=== PATIENT | male | born 1955 | race Caucasian/White ===

== ENCOUNTER → 2017-11-07 | Outpatient (CLI) | payer BC | END | disposition home or self-care (01) | LOC: CPPFTMAIN 13:20 | PROVIDERS: ATTEND Family Medicine | DX: J44.9 Chronic obstructive pulmonary disease, unspecified (principal); R94.2 Abnormal results of pulmonary function studies | CPT/HCPCS: 94060; 94726; 94729 ==

== ENCOUNTER 2018-08-08 15:54 | Inpatient (IN) | payer BC ==
[2018-08-08] MEDS ORDERED: SODIUM CHLORIDE 0.9% 1,000 ML IV STA (16:19)
[2018-08-08] MEDS ORDERED: IPRATROPIUM-ALBUTEROL 3 ML NEB INHALATION STA (16:19)
[2018-08-08] MEDS ORDERED: DILTIAZEM DRIP BOLUS FROM BAG 1 MG SOLN IV ONE (16:20)
--- NOTE | 2018-08-08 16:35 | ED ---
SOB HPI - General Chief Complaint: Shortness of Breath Stated Complaint: SOB Time Seen by Provider: 08/08/18 16:15 Source: patient, RN notes reviewed Mode of arrival: ambulatory Limitations: no limitations - History of Present Illness Initial Comments: This is a 62-year-old male who was a smoker also has a history of atrial fibrillation who states he quit taking his medications 6 months ago because he felt better he was trying to detox himself who presents with complaints of exertional dyspnea and intermittent dyspnea at rest when the past one half weeks he denies any chest pain fevers chills nausea vomiting sweats no palpitations no other complaints at this time. He states he did quit smoking many started again. MD Complaint: shortness of breath - Related Data Home Medications Medication Instructions Recorded Confirmed Multivitamins, Thera [Multivitamin 1 tab PO DAILY 08/08/18 08/08/18 (formulary)] Allergies Allergy/AdvReac Type Severity Reaction Status Date / Time No Known Allergies Allergy Verified 08/08/18 17:28 Review of Systems ROS Statement: Those systems with pertinent positive or pertinent negative responses have been documented in the HPI. ROS Other: All systems not noted in ROS Statement are negative. Past Medical History Past Medical History: Hyperlipidemia History of Any Multi-Drug Resistant Organisms: None Reported Additional Past Surgical History / Comment(s): colonoscopy Past Anesthesia/Blood Transfusion Reactions: No Reported Reaction Past Psychological History: Depression Smoking Status: Current every day smoker Past Alcohol Use History: Occasional Past Drug Use History: None Reported - Past Family History Mother Family Medical History: Cancer General Exam - General Exam Comments Initial Comments: This is a well-developed well-nourished awake alert oriented 3 male Limitations: no limitations General appearance: alert, in no apparent distress Head exam: Present: atraumatic, normocephalic, normal inspection Eye exam: Present: normal appearance, PERRL, EOMI. Absent: scleral icterus, conjunctival injection, periorbital swelling ENT exam: Present: normal exam, mucous membranes moist Neck exam: Present: normal inspection. Absent: tenderness, meningismus, lymphadenopathy Respiratory exam: Present: normal lung sounds bilaterally, decreased breath sounds. Absent: respiratory distress, wheezes, rales, rhonchi, stridor Cardiovascular Exam: Present: tachycardia, irregular rhythm. Absent: systolic murmur, diastolic murmur, rubs, gallop, clicks GI/Abdominal exam: Present: soft, normal bowel sounds. Absent: distended, tenderness, guarding, rebound, rigid Extremities exam: Present: normal inspection, full ROM, normal capillary refill. Absent: tenderness, pedal edema, joint swelling, calf tenderness Back exam: Present: normal inspection Neurological exam: Present: alert, oriented X3, CN II-XII intact Psychiatric exam: Present: normal affect, normal mood Skin exam: Present: warm, dry, intact, normal color. Absent: rash Course Vital Signs 08/08/18 08/08/18 08/08/18 16:10 16:47 16:56 Temperature 96.9 F L Pulse Rate 117 H 114 H 108 H Respiratory 18 Rate Blood Pressure 162/119 O2 Sat by Pulse 97 Oximetry 08/08/18 08/08/18 08/08/18 17:16 17:17 18:11 Temperature Pulse Rate 119 H 108 H Respiratory 18 22 18 Rate Blood Pressure 168/97 166/84 O2 Sat by Pulse 95 96 Oximetry - Reevaluation(s) Reevaluation #1: 08/08/18 18:50 Reevaluation patient reveals he is got improvement breathing heart rate is somewhat improved. Medical Decision Making - Medical Decision Making I did discuss findings with the patient and with his attending physician. Patient does demonstrate evidence of a combination of A. fib RVR with congestive heart failure and COPD exacerbation. He will be admitted with cardiology consultation - Lab Data Result diagrams: 08/08/18 16:15 08/08/18 16:15 Lab Results 08/08/18 08/08/18 08/08/18 Range/Units 16:15 16:15 16:15 WBC 6.1 (3.8-10.6) k/uL RBC 4.84 (4.30-5.90) m/uL Hgb 14.9 (13.0-17.5) gm/dL Hct 46.3 (39.0-53.0) % MCV 95.6 (80.0-100.0) fL MCH 30.8 (25.0-35.0) pg MCHC 32.2 (31.0-37.0) g/dL RDW 12.6 (11.5-15.5) % Plt Count 207 (150-450) k/uL Neutrophils % 60 % Lymphocytes % 28 % Monocytes % 7 % Eosinophils % 3 % Basophils % 1 % Neutrophils # 3.7 (1.3-7.7) k/uL Lymphocytes # 1.7 (1.0-4.8) k/uL Monocytes # 0.4 (0-1.0) k/uL Eosinophils # 0.2 (0-0.7) k/uL Basophils # 0.0 (0-0.2) k/uL PT (9.0-12.0) sec INR (<1.2) APTT (22.0-30.0) sec D-Dimer (<0.60) mg/L FEU Sodium 140 (137-145) mmol/L Potassium 4.0 (3.5-5.1) mmol/L Chloride 105 (98-107) mmol/L Carbon Dioxide 23 (22-30) mmol/L Anion Gap 12 mmol/L BUN 13 (9-20) mg/dL Creatinine 0.90 (0.66-1.25) mg/dL Est GFR (CKD-EPI)AfAm >90 (>60 ml/min/1.73 sqM) Est GFR (CKD-EPI)NonAf >90 (>60 ml/min/1.73 sqM) Glucose 106 H (74-99) mg/dL Calcium 9.3 (8.4-10.2) mg/dL Magnesium 2.2 (1.6-2.3) mg/dL Total Bilirubin 1.2 (0.2-1.3) mg/dL AST 27 (17-59) U/L ALT 33 (21-72) U/L Alkaline Phosphatase 103 (38-126) U/L Total Creatine Kinase 207 H (55-170) U/L CK-MB (CK-2) 3.9 H (0.0-2.4) ng/mL CK-MB (CK-2) Rel Index 1.9 Troponin I 0.015 (0.000-0.034) ng/mL NT-Pro-B Natriuret Pep pg/mL Total Protein 7.6 (6.3-8.2) g/dL Albumin 4.3 (3.5-5.0) g/dL 08/08/18 08/08/18 Range/Units 16:15 16:15 WBC (3.8-10.6) k/uL RBC (4.30-5.90) m/uL Hgb (13.0-17.5) gm/dL Hct (39.0-53.0) % MCV (80.0-100.0) fL MCH (25.0-35.0) pg MCHC (31.0-37.0) g/dL RDW (11.5-15.5) % Plt Count (150-450) k/uL Neutrophils % % Lymphocytes % % Monocytes % % Eosinophils % % Basophils % % Neutrophils # (1.3-7.7) k/uL Lymphocytes # (1.0-4.8) k/uL Monocytes # (0-1.0) k/uL Eosinophils # (0-0.7) k/uL Basophils # (0-0.2) k/uL PT 10.4 (9.0-12.0) sec INR 1.1 (<1.2) APTT 25.6 (22.0-30.0) sec D-Dimer 0.38 (<0.60) mg/L FEU Sodium (137-145) mmol/L Potassium (3.5-5.1) mmol/L Chloride (98-107) mmol/L Carbon Dioxide (22-30) mmol/L Anion Gap mmol/L BUN (9-20) mg/dL Creatinine (0.66-1.25) mg/dL Est GFR (CKD-EPI)AfAm (>60 ml/min/1.73 sqM) Est GFR (CKD-EPI)NonAf (>60 ml/min/1.73 sqM) Glucose (74-99) mg/dL Calcium (8.4-10.2) mg/dL Magnesium (1.6-2.3) mg/dL Total Bilirubin (0.2-1.3) mg/dL AST (17-59) U/L ALT (21-72) U/L Alkaline Phosphatase (38-126) U/L Total Creatine Kinase (55-170) U/L CK-MB (CK-2) (0.0-2.4) ng/mL CK-MB (CK-2) Rel Index Troponin I (0.000-0.034) ng/mL NT-Pro-B Natriuret Pep 1330 pg/mL Total Protein (6.3-8.2) g/dL Albumin (3.5-5.0) g/dL - Radiology Data Radiology results: report reviewed (Imaging shows evidence of increased cardiac size. No definite infiltrates seen per radiologist), image reviewed Critical Care Time Critical Care Time: Yes Critical Care Time: 31 minutes of critical care time which includes initial presentation with history physical labs x-rays reevaluation patient responsive therapy scheduled the patient regarding findings discussed with the admitting physician review of old charting was available. Admission orders and documentation of the above Disposition Clinical Impression: Acute exacerbation of chronic obstructive airways disease, Adult respiratory distress syndrome, Rapid atrial fibrillation Disposition: ADMITTED IP TO THIS HOSP Condition: Stable Referrals: Justino Campo MD [Primary Care Provider] - 1-2 days
[2018-08-08 16:38] LABS: Basophils % (A) 1 %; Eosinophils # (A) 0.2 k/uL (0-0.7); Eosinophils % (A) 3 %; HCT 46.3 % (39.0-53.0); HGB 14.9 gm/dL (13.0-17.5); Lymphocytes # (A) 1.7 k/uL (1.0-4.8); Lymphocytes % (A) 28 %; MCH 30.8 pg (25.0-35.0); MCHC 32.2 g/dL (31.0-37.0); MCV 95.6 fL (80.0-100.0); Mean Platelet Volume 7.3; Monocytes # (A) 0.4 k/uL (0-1.0); Monocytes % (A) 7 %; Neutrophils # (A) 3.7 k/uL (1.3-7.7); Neutrophils % (A) 60 %; Platelet Count 207 k/uL (150-450); RBC 4.84 m/uL (4.30-5.90); RDW 12.6 % (11.5-15.5); WBC 6.1 k/uL (3.8-10.6)
[2018-08-08 16:40] LABS: ALT 33 U/L (21-72); AST 27 U/L (17-59); Albumin 4.3 g/dL (3.5-5.0); Alkaline Phosphatase 103 U/L (38-126); Anion Gap 12 mmol/L; Blood Urea Nitrogen 13 mg/dL (9-20); Calcium 9.3 mg/dL (8.4-10.2); Carbon Dioxide 23 mmol/L (22-30); Chloride 105 mmol/L (98-107); Glucose 106 mg/dL (74-99); Magnesium 2.2 mg/dL (1.6-2.3); Sodium 140 mmol/L (137-145); Total Bilirubin 1.2 mg/dL (0.2-1.3); Total Protein 7.6 g/dL (6.3-8.2)
[2018-08-08 16:43] LABS: D-Dimer 0.38 mg/L FEU (<0.60); INR 1.1 (<1.2); Partial Thromboplastin Time 25.6 sec (22.0-30.0); Prothrombin Time 10.4 sec (9.0-12.0)
[2018-08-08] MEDS: DILTIAZEM 50 MG in SODIUM CHLORIDE 0.9% 40 ML IV SCH ×2 (16:46→22:01)
--- NOTE | 2018-08-08 16:46 | XR ---
EXAMINATION TYPE: XR chest 2V DATE OF EXAM: 08/08/2018 COMPARISON: 11/17/2014 HISTORY: Short of breath TECHNIQUE: Frontal and lateral views of the chest are obtained. FINDINGS: There is no heart failure nor confluent pneumonic infiltrate. There is spurring in the tho racic spine. There are chest leads. Costophrenic angles are clear. There are no hilar masses. IMPRESSION: No active cardiopulmonary disease. Heart however appears increased in size compared to o ld exam.
[2018-08-08 17:12] LABS: Creatine Kinase MB 3.9 ng/mL (0.0-2.4); Troponin I 0.015 ng/mL (0.000-0.034)
[2018-08-08] MEDS ORDERED: FUROSEMIDE 10 MG/ML 4 ML VIAL IV STA (18:13)
[2018-08-08] MEDS ORDERED: methylPREDNISolone SOD SUCCI 125 MG/2 ML VIAL IV STA (18:53)
[2018-08-08] MEDS ORDERED: HEPARIN SODIUM,PORCINE 5,000 UNIT/ML 1 ML VIAL IV ONE (18:58)
[2018-08-08] MEDS ORDERED: HEPARIN SOD,PORK IN 0.45% NACL 25,000 UNIT in 0.45% NACL 1 500ML.BAG IV SCH (19:00)
[2018-08-08] MEDS: SODIUM CHLORIDE 0.9% 1,000 ML IV SCH (19:42)
[2018-08-08] MEDS: IPRATROPIUM-ALBUTEROL 3 ML NEB INHALATION SCH (22:02)
[2018-08-08] MEDS: methylPREDNISolone SOD SUCCI 125 MG/2 ML VIAL IV SCH (23:37)
[2018-08-09] MEDS: IPRATROPIUM-ALBUTEROL 3 ML NEB INHALATION SCH ×6 (01:19→21:41)
[2018-08-09] MEDS ORDERED: IPRATROPIUM-ALBUTEROL 3 ML NEB INHALATION PRN (05:14)
[2018-08-09 05:48] LABS: Glucose,Whole Blood 148 mg/dL (75-99)
[2018-08-09] MEDS: methylPREDNISolone SOD SUCCI 125 MG/2 ML VIAL IV SCH (06:41)
[2018-08-09] MEDS: FUROSEMIDE 10 MG/ML 4 ML VIAL IV SCH ×2 (06:41→17:25)
[2018-08-09] MEDS: NICOTINE 21MG/24HR PATCH TRANSDERM SCH (08:09)
--- NOTE | 2018-08-09 10:18 | P.CRDCN ---
<Clare Iniguez E - Last Filed: 08/09/18 10:00> History of Present Illness Consult date: 08/09/18 Requesting physician: Justino Campo Consult reason: atrial fibrillation, congestive heart failure Chief complaint: Shortness of breath History of present illness: This is a 62-year-old gentleman who has a known history of paroxysmal atrial fibrillation, hyperlipidemia, family history of premature coronary artery disease, nicotine dependence, EtOH use, who used to follow with Dr. Strauss in the office, he states he has not followed with him for quite some time, patient had been on medications for his atrial fibrillation which she had discontinued in the summer because he felt well and states he wanted to cleanse his body of all medications. Patient did undergo cardiac catheterization in February 2015 which revealed normal coronary arteries with a calcified LAD, he also had an echocardiogram with Doppler study performed at that time which revealed an ejection fraction of 55-60%. He presents to the hospital on this occasion with 3 day duration or more of progressively worsening shortness of breath. He does also state that he felt his heart on occasion beat irregularly. EKG on arrival here showed atrial fibrillation with a rapid ventricular response, nonspecific ST-T wave changes. Chest x-ray did not reveal any active cardiopulmonary disease, heart however does appear increased in size as compared with old exam. Blood pressure on arrival here 162 /119, heart rate 118, afebrile, 97% on room air. Blood pressure this morning 162/90, heart rate currently 118, 94% on room air. White blood cell count 6.1, hemoglobin 14.9, platelet count 207, d-dimer 0.3, sodium 140, potassium 4.0, BUN 13, creatinine 0.9. Magnesium 2.2, troponin 0.015, BNP level 1330. Patient was initiated on IV Cardizem, also IV Lasix in the emergency room. Heart rate this morning continues to be in the 1 teens to 120 range. At the time of my examination this morning, patient does state that his breathing is improving, still feel short of breath, and can feel his heart at times palpitate. Past Medical History Past Medical History: Chest Pain / Angina, Hyperlipidemia Additional Past Medical History / Comment(s): past stress test f/u by heart cath (per 2015 heart cath report it was noted that pt had intermittent bouts of afib but when asked pt if he has had any irreg heart rythyms he stated no) History of Any Multi-Drug Resistant Organisms: None Reported Past Surgical History: Heart Catheterization, Tonsillectomy Additional Past Surgical History / Comment(s): colonoscopy, ear sx age 7, lt middle finger reattatched after table saw injury Past Anesthesia/Blood Transfusion Reactions: No Reported Reaction Smoking Status: Current every day smoker - Past Family History Father Family Medical History: CVA/TIA Additional Family Medical History / Comment(s): fall w/ head injury/skull fx in the s Mother Family Medical History: Cancer Medications and Allergies Home Medications Medication Instructions Recorded Confirmed Type Multivitamins, Thera [Multivitamin 1 tab PO DAILY 08/08/18 08/08/18 History (formulary)] Allergies Allergy/AdvReac Type Severity Reaction Status Date / Time No Known Allergies Allergy Verified 08/08/18 17:28 Physical Exam Vitals: Vital Signs Temp Pulse Pulse Resp BP BP Pulse Ox 08/09/18 09:32 116 H 08/09/18 09:17 100 08/09/18 08:00 97.1 F L 101 H 20 162/90 94 L 08/09/18 04:00 97 F L 82 18 147/97 97 08/09/18 00:00 97.2 F L 96 18 144/88 98 08/08/18 23:04 97.8 F 99 18 148/99 98 08/08/18 20:23 101 H 18 175/99 97 08/08/18 20:00 97 18 180/94 100 08/08/18 19:52 97.8 F 98 16 142/89 96 08/08/18 18:11 108 H 18 166/84 96 08/08/18 17:17 22 08/08/18 17:16 119 H 18 168/97 95 08/08/18 16:56 108 H 08/08/18 16:47 114 H 08/08/18 16:10 96.9 F L 117 H 18 162/119 97 Intake and Output 08/08/18 08/09/18 08/09/18 22:59 06:59 14:59 Intake Total 26.25 123.667 178.689 Output Total 1999 400 Balance -1973.75 -276.333 178.689 Intake: Intake, IV Titration 26.25 123.667 178.689 Amount Diltiazem 50 mg In Sodium 26.25 Chloride 0.9% 40 ml @ 5 MG/HR 5 mls/hr IV .Q10H [facility] Rx#:[id number] Heparin Sod,Pork in 0.45% 123.667 178.689 NaCl 25,000 unit In 0.45 % NaCl 1 500ml.bag @ 10. 499 UNITS/KG/HR 20 mls/hr IV .Q24H [facility] Rx#: [id number] Output: Urine 2000 400 Other: Voiding Method Urinal Weight 95.254 kg 89.5 kg PHYSICAL EXAMINATION: GENERAL: 62-year-old gentleman in no acute distress at the time of my examination HEENT: Head is atraumatic, normocephalic. Pupils equal, round. Sclera anicteric. Conjunctiva are clear. Mucous membranes of the mouth are moist. Neck is supple. There is no elevated jugular venous pressure. No carotid bruit is heard. HEART EXAMINATION: Heart S1 and S2 irregularly irregular CHEST EXAMINATION: Lungs reveal rales to bilateral bases with diminished air entry to the bases ABDOMEN: Soft, nontender. Bowel sounds are heard. No organomegaly noted. EXTREMITIES: 2+ peripheral pulses with no evidence of peripheral edema and no calf tenderness noted. NEUROLOGIC patient is awake, alert and oriented X3. . Results 08/08/18 16:15 08/08/18 16:15 Cardiac Enzymes 08/08/18 08/08/18 Range/Units 16:15 16:15 AST 27 (17-59) U/L CK-MB (CK-2) 3.9 H (0.0-2.4) ng/mL Troponin I 0.015 (0.000-0.034) ng/mL Coagulation 08/08/18 08/09/18 08/09/18 Range/Units 16:15 01:19 07:57 PT 10.4 (9.0-12.0) sec APTT 25.6 37.1 H 39.9 H (22.0-30.0) sec CBC 08/08/18 Range/Units 16:15 WBC 6.1 (3.8-10.6) k/uL RBC 4.84 (4.30-5.90) m/uL Hgb 14.9 (13.0-17.5) gm/dL Hct 46.3 (39.0-53.0) % Plt Count 207 (150-450) k/uL Comprehensive Metabolic Panel 08/08/18 Range/Units 16:15 Sodium 140 (137-145) mmol/L Potassium 4.0 (3.5-5.1) mmol/L Chloride 105 (98-107) mmol/L Carbon Dioxide 23 (22-30) mmol/L BUN 13 (9-20) mg/dL Creatinine 0.90 (0.66-1.25) mg/dL Glucose 106 H (74-99) mg/dL Calcium 9.3 (8.4-10.2) mg/dL AST 27 (17-59) U/L ALT 33 (21-72) U/L Alkaline Phosphatase 103 (38-126) U/L Total Protein 7.6 (6.3-8.2) g/dL Albumin 4.3 (3.5-5.0) g/dL Current Medications Generic Name Dose Route Start Last Admin Trade Name Freq PRN Reason Stop Dose Admin Albuterol/Ipratropium 3 ml 08/09/18 05:14 Duoneb 0.5 Mg-3 Mg/3 Ml Soln INHALATION RT-QID PRN Shortness Of Breath Or Wheezing Albuterol/Ipratropium 3 ml 08/09/18 08:00 08/09/18 09:17 Duoneb 0.5 Mg-3 Mg/3 Ml Soln INHALATION 3 ml RT-QID [facility] Administration Furosemide 20 mg 08/09/18 06:00 08/09/18 06:41 Lasix IV 20 mg Q12H [facility] Administration Diltiazem HCl 50 mg/ Sodium 50 mls @ 5 mls/hr 08/08/18 16:30 08/08/18 22:01 Chloride IV 5 mg/hr .Q10H [facility] 5 mls/hr Administration 5 MG/HR Heparin Sodium/Sodium Chloride 500 mls @ 20 mls/hr 08/08/18 19:00 08/09/18 08 :41 25,000 unit/ Sodium Chloride IV 17 units/kg/hr .Q24H [facility] 32.38 mls/hr Titration Protocol 10.499 UNITS/KG/HR Sodium Chloride 1,000 mls @ 20 mls/hr 08/08/18 19:00 08/08/18 19:42 Saline 0.9% IV 20 mls/hr .Q24H [facility] Administration Insulin Aspart 0 unit 08/09/18 12:30 Novolog SQ ACHS L[facility]NN Protocol Methylprednisolone Sodium Succinate 60 mg 08/09/18 00:00 08/09/18 06:41 Solu-Medrol IV 60 mg Q6HR [facility] Administration Nicotine 1 patch 08/09/18 09:00 08/09/18 08:09 Habitrol 21mg/24hr Patch TRANSDERM Not Given DAILY [facility] Intake and Output 08/08/18 08/09/18 08/09/18 22:59 06:59 14:59 Intake Total 26.25 123.667 178.689 Output Total 1999 400 Balance -1973.75 -276.333 178.689 Intake: Intake, IV Titration 26.25 123.667 178.689 Amount Diltiazem 50 mg In Sodium 26.25 Chloride 0.9% 40 ml @ 5 MG/HR 5 mls/hr IV .Q10H [facility] Rx#:[id number] Heparin Sod,Pork in 0.45% 123.667 178.689 NaCl 25,000 unit In 0.45 % NaCl 1 500ml.bag @ 10. 499 UNITS/KG/HR 20 mls/hr IV .Q24H [facility] Rx#: [id number] Output: Urine 1999 400 Other: Voiding Method Urinal Weight 95.254 kg 89.5 kg 08/08/18 16:15 08/08/18 16:15 EKG Interpretations (text) EKG shows atrial fibrillation with a rapid ventricular response, nonspecific ST- T wave changes. Assessment and Plan Plan: Assessment and plan #1 atrial fibrillation with rapid ventricular response, paroxysmal #2 congestive heart failure, LV function unknown, likely precipitated by A. fib with RVR #3 nicotine dependence #4 hypertension #5 hyperlipidemia #6 prior history of atrial fibrillation, patient quit taking his a blood thinner and other medications this summer #7 EtOH use, patient states he drinks a pint of alcohol on the weekends Plan We will obtain an echocardiogram with Doppler study as well as a TSH level. Cpntinue to diurese the patient with IV Lasix. We'll discontinue the IV Cardizem and start the patient on by mouth Lopressor, and initiate TeleQuest and discontinue the IV heparin. We will also discontinue the IV steroids. Initiate statin. Patient has been educated regarding the importance of taking all of his medications regularly. Further recommendations to follow. DNP note has been reviewed, I agree with a documented findings and plan of care. Patient was seen and examined. <Walt Newell - Last Filed: 08/09/18 11:59> History of Present Illness History of present illness: 60-year-old male patient with shortness of breath on exertion as well as at rest for the last week or so. In atrial fibrillation with RVR rate documented HCM in the past. Follows with Dr. Strauss. Suggest rate control and anticoagulation for now and repeat 2-D echo Consider electrical cardioversion in the future after anticoagulation. Consider A. fib ablation. Consider cardiac MRI as an outpatient Physical Exam Vitals: Vital Signs Temp Pulse Pulse Resp BP BP Pulse Ox 08/09/18 11:30 97.3 F L 118 H 18 157/89 91 L 08/09/18 09:32 116 H 08/09/18 09:17 100 08/09/18 08:00 97.1 F L 101 H 20 162/90 94 L 08/09/18 04:00 97 F L 82 18 147/97 97 08/09/18 00:00 97.2 F L 96 18 144/88 98 08/08/18 23:04 97.8 F 99 18 148/99 98 08/08/18 20:23 101 H 18 175/99 97 08/08/18 20:00 97 18 180/94 100 08/08/18 19:52 97.8 F 98 16 142/89 96 08/08/18 18:11 108 H 18 166/84 96 08/08/18 17:17 22 08/08/18 17:16 119 H 18 168/97 95 08/08/18 16:56 108 H 08/08/18 16:47 114 H 08/08/18 16:10 96.9 F L 117 H 18 162/119 97 Intake and Output 08/08/18 08/09/18 08/09/18 22:59 06:59 14:59 Intake Total 26.25 123.667 178.689 Output Total 1999 400 825 Balance -1973.75 -276.333 -646.311 Intake: Intake, IV Titration 26.25 123.667 178.689 Amount Diltiazem 50 mg In Sodium 26.25 Chloride 0.9% 40 ml @ 5 MG/HR 5 mls/hr IV .Q10H [facility] Rx#:[id number] Heparin Sod,Pork in 0.45% 123.667 178.689 NaCl 25,000 unit In 0.45 % NaCl 1 500ml.bag @ 10. 499 UNITS/KG/HR 20 mls/hr IV .Q24H [facility] Rx#: [id number] Output: Urine 2000 400 825 Other: Voiding Method Urinal # Voids 1 # Bowel Movements 0 Weight 95.254 kg 89.5 kg Results 08/08/18 16:15 08/08/18 16:15 Cardiac Enzymes 08/08/18 08/08/18 Range/Units 16:15 16:15 AST 27 (17-59) U/L CK-MB (CK-2) 3.9 H (0.0-2.4) ng/mL Troponin I 0.015 (0.000-0.034) ng/mL Coagulation 08/08/18 08/09/18 08/09/18 Range/Units 16:15 01:19 07:57 PT 10.4 (9.0-12.0) sec APTT 25.6 37.1 H 39.9 H (22.0-30.0) sec CBC 08/08/18 Range/Units 16:15 WBC 6.1 (3.8-10.6) k/uL RBC 4.84 (4.30-5.90) m/uL Hgb 14.9 (13.0-17.5) gm/dL Hct 46.3 (39.0-53.0) % Plt Count 207 (150-450) k/uL Comprehensive Metabolic Panel 08/08/18 Range/Units 16:15 Sodium 140 (137-145) mmol/L Potassium 4.0 (3.5-5.1) mmol/L Chloride 105 (98-107) mmol/L Carbon Dioxide 23 (22-30) mmol/L BUN 13 (9-20) mg/dL Creatinine 0.90 (0.66-1.25) mg/dL Glucose 106 H (74-99) mg/dL Calcium 9.3 (8.4-10.2) mg/dL AST 27 (17-59) U/L ALT 33 (21-72) U/L Alkaline Phosphatase 103 (38-126) U/L Total Protein 7.6 (6.3-8.2) g/dL Albumin 4.3 (3.5-5.0) g/dL Current Medications Generic Name Dose Route Start Last Admin Trade Name Freq PRN Reason Stop Dose Admin Albuterol/Ipratropium 3 ml 08/09/18 05:14 Duoneb 0.5 Mg-3 Mg/3 Ml Soln INHALATION RT-QID PRN Shortness Of Breath Or Wheezing Albuterol/Ipratropium 3 ml 08/09/18 08:00 08/09/18 09:17 Duoneb 0.5 Mg-3 Mg/3 Ml Soln INHALATION 3 ml RT-QID [facility] Administration Apixaban 5 mg 08/09/18 10:15 08/09/18 11:17 Eliquis PO 5 mg BID [facility] Administration Atorvastatin Calcium 40 mg 08/09/18 21:00 Lipitor PO HS L[facility]NN Furosemide 20 mg 08/09/18 06:00 08/09/18 06:41 Lasix IV 20 mg Q12H [facility] Administration Sodium Chloride 1,000 mls @ 20 mls/hr 08/08/18 19:00 08/08/18 19:42 Saline 0.9% IV 20 mls/hr .Q24H [facility] Administration Insulin Aspart 0 unit 08/09/18 12:30 Novolog SQ ACHS [facility] Protocol Metoprolol Tartrate 50 mg 08/09/18 21:00 08/09/18 11:17 Lopressor PO 50 mg BID L[facility] Administration Nicotine 1 patch 08/09/18 09:00 08/09/18 08:09 Habitrol 21mg/24hr Patch TRANSDERM Not Given DAILY [facility] Intake and Output 08/08/18 08/09/18 08/09/18 22:59 06:59 14:59 Intake Total 26.25 123.667 178.689 Output Total 1999 677 825 Balance -1973.75 -276.333 -646.311 Intake: Intake, IV Titration 26.25 123.667 178.689 Amount Diltiazem 50 mg In Sodium 26.25 Chloride 0.9% 40 ml @ 5 MG/HR 5 mls/hr IV .Q10H [facility] Rx#:[id number] Heparin Sod,Pork in 0.45% 123.667 178.689 NaCl 25,000 unit In 0.45 % NaCl 1 500ml.bag @ 10. 499 UNITS/KG/HR 20 mls/hr IV .Q24H [facility] Rx#: [id number] Output: Urine 1999 400 825 Other: Voiding Method Urinal # Voids 1 # Bowel Movements 0 Weight 95.254 kg 89.5 kg 08/08/18 16:15 08/08/18 16:15
[2018-08-09] MEDS ORDERED: METOPROLOL TARTRATE 25 MG TAB PO SCH (10:30)
[2018-08-09] MEDS: METOPROLOL TARTRATE 50 MG TAB PO SCH ×2 (11:17→21:17)
[2018-08-09] MEDS: APIXABAN 5 MG TAB PO SCH ×2 (11:17→21:13)
[2018-08-09 11:43] LABS: Glucose,Whole Blood 253 mg/dL (75-99)
[2018-08-09] MEDS ORDERED: INSULIN ASPART 100 UNIT/ML 1 ML 10 ML VIAL SQ SCH (12:30)
--- NOTE | 2018-08-09 13:00 | P.HPIM ---
History of Present Illness H&P Date: 08/09/18 Chief Complaint: shortness of breath 62-year-old male with a past medical history of atrial fibrillation and hyperlipidemia who presented to the emergency room with a chief complaint of shortness of breath. Patient apparently stopped all his prescription medications over the summer because he was feeling better and wanted to detox from all the medications he was taking. The patient reports over the past week he has had progressive shortness of breath and occasional palpitations. Patient denies chest pain pain. Denies cough or sputum production. denies nausea or vomiting. Denies lightheadedness or dizziness. Chest x-ray: negative for an acute cardiopulmonary process. Heart over appears increased in size compared to old exam. EKG: atrial fibrillation with rapid ventricular response. Heart rate 133 Laboratory data on admission reveals white count 6.1. Hemoglobin 14.9. Platelet count 207. D-dimer 0.38. Sodium 140. Potassium 4.0. BUN 13. Creatinine 0.90. Magnesium 2.2. Troponin 0.015. BNP 1330. The patient was given IV cardizem bolus in drip in the emergency room. He was also given IV lasix and started on IV steroids. The patient was admitted to the hospital under the care of Dr. Campo. Consultations were placed to cardiology. Review of Systems Those systems with pertinent positive or pertinent negative responses have been documented in the HPI Past Medical History Past Medical History: Chest Pain / Angina, Hyperlipidemia Additional Past Medical History / Comment(s): past stress test f/u by heart cath (per 2015 heart cath report it was noted that pt had intermittent bouts of afib but when asked pt if he has had any irreg heart rythyms he stated no) History of Any Multi-Drug Resistant Organisms: None Reported Past Surgical History: Heart Catheterization, Tonsillectomy Additional Past Surgical History / Comment(s): colonoscopy, ear sx age 7, lt middle finger reattatched after table saw injury Past Anesthesia/Blood Transfusion Reactions: No Reported Reaction Smoking Status: Current every day smoker - Past Family History Father Family Medical History: CVA/TIA Additional Family Medical History / Comment(s): fall w/ head injury/skull fx in the 1969's Mother Family Medical History: Cancer Medications and Allergies Home Medications Medication Instructions Recorded Confirmed Type Multivitamins, Thera [Multivitamin 1 tab PO DAILY 08/08/18 08/08/18 History (formulary)] Allergies Allergy/AdvReac Type Severity Reaction Status Date / Time No Known Allergies Allergy Verified 08/08/18 17:28 Physical Exam Vitals: Vital Signs Temp Pulse Pulse Resp BP BP Pulse Ox 08/09/18 11:30 97.3 F L 118 H 18 157/89 91 L 08/09/18 09:32 116 H 08/09/18 09:17 100 08/09/18 08:00 97.1 F L 101 H 20 162/90 94 L 08/09/18 04:00 97 F L 82 18 147/97 97 08/09/18 00:00 97.2 F L 96 18 144/88 98 08/08/18 23:04 97.8 F 99 18 148/99 98 08/08/18 20:23 101 H 18 175/99 97 08/08/18 20:00 97 18 180/94 100 08/08/18 19:52 97.8 F 98 16 142/89 96 08/08/18 18:11 108 H 18 166/84 96 08/08/18 17:17 22 08/08/18 17:16 119 H 18 168/97 95 08/08/18 16:56 108 H 08/08/18 16:47 114 H 08/08/18 16:10 96.9 F L 117 H 18 162/119 97 Intake and Output 08/08/18 08/09/18 08/09/18 22:59 06:59 14:59 Intake Total 26.25 123.667 178.689 Output Total 1999 400 825 Balance -1973.75 -276.333 -646.311 Intake: Intake, IV Titration 26.25 123.667 178.689 Amount Diltiazem 50 mg In Sodium 26.25 Chloride 0.9% 40 ml @ 5 MG/HR 5 mls/hr IV .Q10H [facility] Rx#:[id number] Heparin Sod,Pork in 0.45% 123.667 178.689 NaCl 25,000 unit In 0.45 % NaCl 1 500ml.bag @ 10. 499 UNITS/KG/HR 20 mls/hr IV .Q24H [facility] Rx#: [id number] Output: Urine 1999 400 825 Other: Voiding Method Urinal # Voids 1 # Bowel Movements 0 Weight 95.254 kg 89.5 kg GENERAL: This is a 62-year-old male in no apparent distress at the time of examination. Pleasant and cooperative. HEENT: Head is atraumatic, normocephalic. Pupils are equal, round, and reactive to light. Sclerae anicteric. Conjunctivae are clear. Mucus membranes of the mouth are moist. Neck is supple. RESPIRATORY: Lungs with rales to bilateral bases. No use of accessory muscles. Patient maintaining oxygen saturation greater than 92%. No chest wall tenderness is noted on palpation or with deep breathing. CARDIOVASCULAR: Irregular rhythm. Telemetry reveals afib. S1 and S2 noted. No systolic or diastolic murmur auscultated. No JVD noted. No S3 or S4 noted. GASTROINTESTINAL: No distention noted. Abdomen soft and round. Normal active bowel sounds auscultated x 4 quadrants. No pain or tenderness noted upon palpation. INTEGUMENTARY: No cyanosis. No jaundice. No rashes noted. No cellulitis noted. EXTREMITIES: 2+ peripheral pulses. No evidence of peripheral edema. No calf tenderness noted. NEUROLOGIC: Cranial nerves II-XII intact. PSYCHIATRIC: Awake, alert, and oriented X 3. Appropriate affect. Intact judgement and insight. Results CBC & Chem 7: 08/08/18 16:15 08/08/18 16:15 Labs: Abnormal Lab Results - Last 24 Hours (Table) 08/08/18 08/08/18 08/09/18 Range/Units 16:15 16:15 01:19 APTT 37.1 H (22.0-30.0) sec Glucose 106 H (74-99) mg/dL POC Glucose (mg/dL) (75-99) mg/dL Total Creatine Kinase 207 H (55-170) U/L CK-MB (CK-2) 3.9 H (0.0-2.4) ng/mL 08/09/18 08/09/18 08/09/18 Range/Units 05:47 07:57 11:41 APTT 39.9 H (22.0-30.0) sec Glucose (74-99) mg/dL POC Glucose (mg/dL) 148 H 253 H (75-99) mg/dL Total Creatine Kinase (55-170) U/L CK-MB (CK-2) (0.0-2.4) ng/mL Thrombosis Risk Factor Assmnt - Choose All That Apply Any of the Below Risk Factors Present?: No Other Risk Factors: Yes Each Risk Factor Represents 2 Points: Age 61-74 years Other congenital or acquired thrombophilia - If yes, enter type in comment: No Thrombosis Risk Factor Assessment Total Risk Factor Score: 2 Thrombosis Risk Factor Assessment Level: Low Risk Assessment and Plan Plan: ASSESSMENT: Paroxysmal atrial fibrillation with rapid ventricular response Acute exacerbation of congestive heart failure, type unknown Shortness of breath due to afib with RVR and CHF, COPD exacerbation ruled out Hypertension Hyperlipidemia Depression Nicotine dependence, patient is a current cigarette smoker Medical noncompliance, patient quit taking his medications this summer without consulting with physician because he was "feeling better" PLAN: Cardiology on consult. Appreciate recommendations and input Patient started on Lopressor. Monitor heart rate Continue IV lasix. Wean per cardiology Daily weights Home meds as appropriate Monitor labs GI prophylaxis: Protonix 40 mg PO Daily DVT prophylaxis: Eliquis Monitor vital signs and address as appropriate Discharge planning: Patient to return home when stable Further recommendations pending patient's course Possible discharge home tomorrow Nurse practitioner note has been reviewed by physician. Signing provider agrees with the documented findings, assessment, and plan of care.
[2018-08-09 16:05] LABS: Hemoglobin A1C 6.1 % (4.0-6.0)
[2018-08-09 16:28] LABS: Glucose,Whole Blood 144 mg/dL (75-99)
[2018-08-09] MEDS: SODIUM CHLORIDE 0.9% 1,000 ML IV SCH (21:08)
[2018-08-09] MEDS: ATORVASTATIN 40 MG TAB PO SCH (21:12)
[2018-08-10] MEDS: FUROSEMIDE 10 MG/ML 4 ML VIAL IV SCH (06:42)
[2018-08-10] MEDS: METOPROLOL TARTRATE 50 MG TAB PO SCH (08:12)
[2018-08-10] MEDS: APIXABAN 5 MG TAB PO SCH ×2 (08:12→23:31)
[2018-08-10] MEDS: NICOTINE 21MG/24HR PATCH TRANSDERM SCH (08:14)
[2018-08-10] MEDS: IPRATROPIUM-ALBUTEROL 3 ML NEB INHALATION SCH (08:33)
--- NOTE | 2018-08-10 11:19 | ECHOF ---
Referral Reason:afib MEASUREMENTS -------- HEIGHT: 190.5 cm WEIGHT: 89.4 kg BP: 133/90 RVIDd: 4.0 cm (< 3.3) IVSd: 1.1 cm (0.6 - 1.1) LVIDd: 4.8 cm (3.9 - 5.3) LVPWd: 1.2 cm (0.6 - 1.1) IVSs: 1.2 cm LVIDs: 4.5 cm LVPWs: 1.3 cm LAESV Index (A-L): 75.88 ml/m Ao Diam: 4.0 cm (2.0 - 3.7) AV Cusp: 2.5 cm (1.5 - 2.6) LA Diam: 3.2 cm (2.7 - 3.8) EPSS: 0.6 cm MV E Azeem: 0.84 m/s MV DecT: 220 ms MV A Azeem: 0.00 m/s MV E/A Ratio: 804.42 RAP: 10.00 mmHg RVSP: 39.95 mmHg MV EF SLOPE: 248.24 mm/s (70 - 150) MV EXCURSION: 2.43 cm (> 18.000) FINDINGS -------- Atrial fibrillation. This was a technically adequate study. The left ventricular size is normal. There is borderline concentric left ventricular hypertrophy. There is severe global hypokinesis of LV . Overall left ventricular systolic function is severely impaired with, an EF < 20%. Difficult to accurately estimate ejection fraction due to heart rhythm. The right ventricle is moderately enlarged. LA is severely dilated >40 ml/m2 The right atrium is markedly enlarged. The aortic valve is trileaflet, and appears structurally normal. No aortic stenosis or regurgitation. The mitral valve leaflets are mildly thickened. Moderate mitral regurgitation is present. [id number] tricuspid regurgitation present. There is mild pulmonary hypertension. The right ventricular systolic pressure, as measured by Doppler, is 39.95mmHg. Trace/mild (physiologic) pulmonic regurgitation. The aortic root is mildy dilated, up to 3.8 cm. The IVC is dilated with normal collapse. There is no pericardial effusion. CONCLUSIONS -------- 1. Atrial fibrillation. 2. This was a technically adequate study. 3. The left ventricular size is normal. 4. There is borderline concentric left ventricular hypertrophy. 5. There is severe global hypokinesis of LV . 6. Overall left ventricular systolic function is severely impaired with, an EF < 20%. 7. Difficult to accurately estimate ejection fraction due to heart rhythm. 8. The right ventricle is moderately enlarged. 9. LA is severely dilated >40 ml/m2 10. The right atrium is markedly enlarged. 11. The aortic valve is trileaflet, and appears structurally normal. No aortic stenosis or regurgitat ion. 12. The mitral valve leaflets are mildly thickened. 13. Moderate mitral regurgitation is present. 14. [id number] tricuspid regurgitation present. 15. There is mild pulmonary hypertension. 16. The right ventricular systolic pressure, as measured by Doppler, is 39.95mmHg. 17. Trace/mild (physiologic) pulmonic regurgitation. 18. The aortic root is mildy dilated, up to 3.8 cm. 19. The IVC is dilated with normal collapse. 20. There is no pericardial effusion. FOOTBALL COACH: Italo Saleem RDCS
--- NOTE | 2018-08-10 12:46 | P.PN ---
Subjective Patient is still short of breath and still has A. fib with RVR although improving. He was admitted with heart failure symptoms and A. fib with RVR. He has known hypertrophic cardio myopathy based upon a 2-D echo by Dr. Strauss about 3 years back. Breath sounds are equal bilaterally no rhonchi no crackles Heart sounds are irregular and rapid No JVD No lower extremity edema His current issues are 1. Severe LV dysfunction ejection fraction 20%, dilated right ventricle, congestive heart failure systolic acute on chronic 2. Heavy alcohol use over the weekends 3. Atrial fibrillation with RVR 4. History of hypertrophic obstructive cardiomyopathy Suggest Switched to long-acting metoprolol succinate 100 mg by mouth daily one dose now. Stop metoprolol tartrate Start losartan 25 mg in the evening Switched to Lasix 40 mg by mouth daily tomorrow along with Aldactone 25 mg by mouth daily Rate control atrial fibrillation Outpatient workup with Dr. Strauss. This was discussed with Dr. Strauss I had a very detailed discussion with patient regarding lifestyle modification and complete abstinence from alcohol use The patient understands and will quit drinking completely Medical treatment was advised Management of atrial fibrillation thereafter after at least 3-4 weeks of anticoagulation Objective - Vital Signs Vital signs: Vital Signs Temp 97.0 F L 08/10/18 11:38 Pulse 107 H 08/10/18 11:38 Resp 18 08/10/18 11:38 BP 133/97 08/10/18 11:38 Pulse Ox 91 L 08/10/18 11:38 Intake & Output 08/09/18 08/10/18 08/10/18 18:59 06:59 18:59 Intake Total 1013.689 354 240 Output Total 825 Balance 188.689 354 240 Intake: Intake, IV Titration 178.689 Amount Heparin Sod,Pork in 0.45% 178.689 NaCl 25,000 unit In 0.45 % NaCl 1 500ml.bag @ 10. 499 UNITS/KG/HR 20 mls/hr IV .Q24H [facility] Rx#: [id number] Oral 835 354 240 Output: Urine 825 Other: Voiding Method Urinal # Voids 1 1 # Bowel Movements 0 - Labs CBC & Chem 7: 08/08/18 16:15 08/08/18 16:15 Labs: Abnormal Lab Results - Last 24 Hours (Table) 08/09/18 08/09/18 08/09/18 Range/Units 01:19 07:57 16:26 POC Glucose (mg/dL) 144 H (75-99) mg/dL Hemoglobin A1c 6.1 H (4.0-6.0) % TSH 0.356 L (0.465-4.680) mIU/L
[2018-08-10] MEDS ORDERED: LOSARTAN 25 MG TAB PO SCH (13:45)
--- NOTE | 2018-08-10 14:13 | P.PN ---
Subjective Progress Note Date: 08/10/18 62-year-old male with a past medical history of atrial fibrillation and hyperlipidemia who presented to the emergency room with a chief complaint of shortness of breath. Patient apparently stopped all his prescription medications over the summer because he was feeling better and wanted to detox from all the medications he was taking. The patient reports over the past week he has had progressive shortness of breath and occasional palpitations. Patient denies chest pain pain. Denies cough or sputum production. denies nausea or vomiting. Denies lightheadedness or dizziness. Chest x-ray: negative for an acute cardiopulmonary process. Heart over appears increased in size compared to old exam. EKG: atrial fibrillation with rapid ventricular response. Heart rate 133 Laboratory data on admission reveals white count 6.1. Hemoglobin 14.9. Platelet count 207. D-dimer 0.38. Sodium 140. Potassium 4.0. BUN 13. Creatinine 0.90. Magnesium 2.2. Troponin 0.015. BNP 1330. The patient was given IV cardizem bolus in drip in the emergency room. He was also given IV lasix and started on IV steroids. The patient was admitted to the hospital under the care of Dr. Campo. Consultations were placed to cardiology. 08/10/2018 Patient seen and examined at the bedside. Echocardiogram completed revealed severe global hypokinesis of LV, ejection fraction less than 20%, severely dilated LA, moderate mitral regurgitation, mild to moderate tricuspid regurgitation, mild pulmonary hypertension, and RVSP of 39.95. Patient remains on metoprolol 50 mg twice a day. He was started on Eliquis yesterday 5 mg twice a day. His heparin drip has been discontinued. He remains on IV Lasix 20 mg IV every 12 hours. He is afebrile. Heart rate is in the low 100s. Objective - Vital Signs Vital signs: Vital Signs Temp 97.0 F L 08/10/18 11:38 Pulse 107 H 08/10/18 11:38 Resp 18 08/10/18 11:38 BP 133/97 08/10/18 11:38 Pulse Ox 91 L 08/10/18 11:38 Intake & Output 08/09/18 08/10/18 08/10/18 18:59 06:59 18:59 Intake Total 1013.689 354 240 Output Total 825 Balance 188.689 354 240 Intake: Intake, IV Titration 178.689 Amount Heparin Sod,Pork in 0.45% 178.689 NaCl 25,000 unit In 0.45 % NaCl 1 500ml.bag @ 10. 499 UNITS/KG/HR 20 mls/hr IV .Q24H [facility] Rx#: [id number] Oral 835 354 240 Output: Urine 825 Other: Voiding Method Urinal # Voids 1 1 # Bowel Movements 0 - Exam GENERAL: This is a 62-year-old male in no apparent distress at the time of examination. Pleasant and cooperative. HEENT: Head is atraumatic, normocephalic. Pupils are equal, round, and reactive to light. Sclerae anicteric. Conjunctivae are clear. Mucus membranes of the mouth are moist. Neck is supple. RESPIRATORY: Lungs diminished bilaterally. No use of accessory muscles. Patient maintaining oxygen saturation greater than 92%. No chest wall tenderness is noted on palpation or with deep breathing. CARDIOVASCULAR: Irregular rhythm. Telemetry reveals Afib. S1 and S2 noted. No systolic or diastolic murmur auscultated. No JVD noted. No S3 or S4 noted. GASTROINTESTINAL: No distention noted. Abdomen soft and round. Normal active bowel sounds auscultated x 4 quadrants. No pain or tenderness noted upon palpation. INTEGUMENTARY: No cyanosis. No jaundice. No rashes noted. No cellulitis noted. EXTREMITIES: 2+ peripheral pulses. No evidence of peripheral edema. No calf tenderness noted. NEUROLOGIC: Cranial nerves II-XII intact. PSYCHIATRIC: Awake, alert, and oriented X 3. Appropriate affect. Intact judgement and insight. - Labs CBC & Chem 7: 08/08/18 16:15 08/08/18 16:15 Labs: Abnormal Lab Results - Last 24 Hours (Table) 08/09/18 08/09/18 08/09/18 Range/Units 01:19 07:57 16:26 POC Glucose (mg/dL) 144 H (75-99) mg/dL Hemoglobin A1c 6.1 H (4.0-6.0) % TSH 0.356 L (0.465-4.680) mIU/L Assessment and Plan Plan: ASSESSMENT: Paroxysmal atrial fibrillation with rapid ventricular response Acute exacerbation of congestive heart failure, systolic, EF less than 20% Shortness of breath due to afib with RVR and CHF, COPD exacerbation ruled out Hypertension Hyperlipidemia Depression Nicotine dependence, patient is a current cigarette smoker Medical noncompliance, patient quit taking his medications this summer without consulting with physician because he was "feeling better" EtOH use, patient states he drinks a pint of alcohol on the weekends PLAN: Cardiology on consult. Appreciate recommendations and input Continue metoprolol per cardiology Continue IV lasix. Wean per cardiology Daily weights Home meds as appropriate Monitor labs GI prophylaxis: Protonix 40 mg PO Daily DVT prophylaxis: Eliquis Monitor vital signs and address as appropriate Discharge planning: Patient to return home when stable Further recommendations pending patient's course Nurse practitioner note has been reviewed by physician. Signing provider agrees with the documented findings, assessment, and plan of care.
[2018-08-10] MEDS: METOPROLOL SUCCINATE (ER) 100 MG TAB.ER.24H PO SCH (14:39)
[2018-08-10] MEDS: FUROSEMIDE 20 MG TAB PO SCH (14:39)
[2018-08-10] MEDS: SODIUM CHLORIDE 0.9% 1,000 ML IV SCH (18:28)
[2018-08-10] MEDS: ATORVASTATIN 40 MG TAB PO SCH (23:31)
[2018-08-11] MEDS: APIXABAN 5 MG TAB PO SCH ×2 (08:44→19:47)
[2018-08-11] MEDS: NICOTINE 21MG/24HR PATCH TRANSDERM SCH ×2 (08:44→08:51)
[2018-08-11] MEDS: FUROSEMIDE 20 MG TAB PO SCH ×2 (08:44→17:42)
[2018-08-11] MEDS: METOPROLOL SUCCINATE (ER) 100 MG TAB.ER.24H PO SCH (08:45)
[2018-08-11] MEDS: SPIRONOLACTONE 25 MG TAB PO SCH (08:45)
--- NOTE | 2018-08-11 09:46 | P.PN ---
Subjective Progress Note Date: 08/11/18 This is a 62-year-old gentleman who has a known history of paroxysmal atrial fibrillation, hyperlipidemia, family history of premature coronary artery disease, nicotine dependence, EtOH use, who used to follow with Dr. Strauss in the office, he states he has not followed with him for quite some time, patient had been on medications for his atrial fibrillation which she had discontinued in the summer because he felt well and states he wanted to cleanse his body of all medications. Patient did undergo cardiac catheterization in February 2015 which revealed normal coronary arteries with a calcified LAD, he also had an echocardiogram with Doppler study performed at that time which revealed an ejection fraction of 55-60%. He presents to the hospital on this occasion with 3 day duration or more of progressively worsening shortness of breath. He does also state that he felt his heart on occasion beat irregularly. EKG on arrival here showed atrial fibrillation with a rapid ventricular response, nonspecific ST-T wave changes. Chest x-ray did not reveal any active cardiopulmonary disease, heart however does appear increased in size as compared with old exam. Blood pressure on arrival here 162 /119, heart rate 118, afebrile, 97% on room air. Blood pressure this morning 162/90, heart rate currently 118, 94% on room air. White blood cell count 6.1, hemoglobin 14.9, platelet count 207, d-dimer 0.3, sodium 140, potassium 4.0, BUN 13, creatinine 0.9. Magnesium 2.2, troponin 0.015, BNP level 1330. Patient was initiated on IV Cardizem, also IV Lasix in the emergency room. Heart rate this morning continues to be in the 1 teens to 120 range. At the time of my examination this morning, patient does state that his breathing is improving, still feel short of breath, and can feel his heart at times palpitate. 08/11/2018 Echocardiogram with Doppler study was performed yesterday which revealed severe LV dysfunction with an ejection fraction of 20%, dilated right ventricle, we switched him to long-acting metoprolol yesterday 100 mg daily, initiated losartan, discontinue his IV Lasix and started him on oral diuretics, we also added a small dose of Aldactone to his medication regime. Patient continues to be in atrial fibrillation this morning his heart rate is mostly in the 80s to 90s, I have encouraged in this morning to be up ambulating so we can monitor what his heart rate is doing with ambulation. Blood pressure this morning 146/ 80. TSH level was drawn which came back to be 0.35. Patient overall feels well , breathing is stable, feels an occasional flutter in his chest. Objective - Vital Signs Vital signs: Vital Signs Temp 96.6 F L 08/11/18 08:35 Pulse 104 H 08/11/18 08:35 Resp 16 08/11/18 08:35 BP 146/83 08/11/18 08:35 Pulse Ox 96 08/11/18 08:35 Intake & Output 08/10/18 08/11/18 08/11/18 18:59 06:59 18:59 Intake Total 840 400 Output Total 200 200 850 Balance 640 -200 -450 Weight 89.3 kg Intake: Oral 840 400 Output: Urine 200 200 850 Other: Voiding Method Urinal # Voids 2 1 # Bowel Movements 1 1 - Exam PHYSICAL EXAMINATION: GENERAL: 62-year-old gentleman in no acute distress at the time of my examination HEENT: Head is atraumatic, normocephalic. Pupils equal, round. Sclera anicteric. Conjunctiva are clear. Mucous membranes of the mouth are moist. Neck is supple. There is no elevated jugular venous pressure. No carotid bruit is heard. HEART EXAMINATION: Heart S1 and S2 irregularly irregular CHEST EXAMINATION: Lungs clear to auscultation ABDOMEN: Soft, nontender. Bowel sounds are heard. No organomegaly noted. EXTREMITIES: 2+ peripheral pulses with no evidence of peripheral edema and no calf tenderness noted. NEUROLOGIC patient is awake, alert and oriented X3. . - Labs CBC & Chem 7: 08/08/18 16:15 08/08/18 16:15 Assessment and Plan Plan: Assessment and plan #1 atrial fibrillation with rapid ventricular response, paroxysmal #2 congestive heart failure, LV function unknown, likely precipitated by A. fib with RVR #3 nicotine dependence #4 hypertension #5 hyperlipidemia #6 prior history of atrial fibrillation, patient quit taking his a blood thinner and other medications this summer #7 EtOH use, patient states he drinks a pint of alcohol on the weekends #8 cardiomyopathy, likely nonischemic, could be secondary to EtOH. EF less than 20% Plan Patient has been encouraged his morning to be up and bleeding in the hallway. We will monitor his heart rate with activity, we will increase his Cozaar today to 50 mg daily. Continue to monitor the patient. Plan for discharge home on Monday. Follow-up with Dr. Newell. DNP note has been reviewed, I agree with a documented findings and plan of care. Patient was seen and examined.
[2018-08-11] MEDS: LOSARTAN 50 MG TAB PO SCH (10:39)
[2018-08-11] MEDS ORDERED: THIAMINE 100 MG/ML 2 ML VIAL IM STA (11:42)
[2018-08-11] MEDS ORDERED: LORazepam 2 MG/ML INJ IV PRN ×3 (11:42)
--- NOTE | 2018-08-11 12:33 | P.PN ---
Subjective 62-year-old male with a past medical history of atrial fibrillation and hyperlipidemia who presented to the emergency room with a chief complaint of shortness of breath. Patient apparently stopped all his prescription medications over the summer because he was feeling better and wanted to detox from all the medications he was taking. The patient reports over the past week he has had progressive shortness of breath and occasional palpitations. Patient denies chest pain pain. Denies cough or sputum production. denies nausea or vomiting. Denies lightheadedness or dizziness. Chest x-ray: negative for an acute cardiopulmonary process. Heart over appears increased in size compared to old exam. EKG: atrial fibrillation with rapid ventricular response. Heart rate 133 Laboratory data on admission reveals white count 6.1. Hemoglobin 14.9. Platelet count 207. D-dimer 0.38. Sodium 140. Potassium 4.0. BUN 13. Creatinine 0.90. Magnesium 2.2. Troponin 0.015. BNP 1330. The patient was given IV cardizem bolus in drip in the emergency room. He was also given IV lasix and started on IV steroids. The patient was admitted to the hospital under the care of Dr. Campo. Consultations were placed to cardiology. 08/10/2018 Patient seen and examined at the bedside. Echocardiogram completed revealed severe global hypokinesis of LV, ejection fraction less than 20%, severely dilated LA, moderate mitral regurgitation, mild to moderate tricuspid regurgitation, mild pulmonary hypertension, and RVSP of 39.95. Patient remains on metoprolol 50 mg twice a day. He was started on Eliquis yesterday 5 mg twice a day. His heparin drip has been discontinued. He remains on IV Lasix 20 mg IV every 12 hours. He is afebrile. Heart rate is in the low 100s. 08/11/2018 Patient continues to complain of some mild shortness of breath with without exertion. Cardiology had started him on some new medications and are planning him staying through Monday. He denies any chest pains, nausea, or vomiting. He denies any dizziness or lightheadedness this time. He is tolerating his diet , but does not like hospital food. I discussed his case with cardiology today. Telemetry shows his heart rate in the 90s currently. Objective - Vital Signs Vital signs: Vital Signs Temp 96.6 F L 08/11/18 08:35 Pulse 88 08/11/18 12:00 Resp 18 08/11/18 12:00 BP 127/74 08/11/18 12:00 Pulse Ox 95 08/11/18 12:00 Intake & Output 08/10/18 08/11/18 08/11/18 18:59 06:59 18:59 Intake Total 840 400 Output Total 200 200 850 Balance 640 -200 -450 Weight 89.3 kg Intake: Oral 840 400 Output: Urine 200 200 850 Other: Voiding Method Urinal Urinal # Voids 2 1 # Bowel Movements 1 1 - Exam GENERAL: This is a 62-year-old male in no apparent distress at the time of examination. Pleasant and cooperative. Neck is supple. RESPIRATORY: Lungs diminished bilaterally. No use of accessory muscles. Patient maintaining oxygen saturation greater than 92%. No chest wall tenderness is noted on palpation or with deep breathing. CARDIOVASCULAR: Irregular rhythm. Telemetry reveals Afib. S1 and S2 noted. No systolic or diastolic murmur auscultated. No JVD noted. No S3 or S4 noted. GASTROINTESTINAL: No distention noted. Abdomen soft and round. Normal active bowel sounds auscultated x 4 quadrants. No pain or tenderness noted upon palpation. INTEGUMENTARY: No cyanosis. No jaundice. No rashes noted. No cellulitis noted. EXTREMITIES: 2+ peripheral pulses. No evidence of peripheral edema. No calf tenderness noted. NEUROLOGIC: Cranial nerves II-XII intact. PSYCHIATRIC: Awake, alert, and oriented X 3. Appropriate affect. Intact judgement and insight. - Labs CBC & Chem 7: 08/08/18 16:15 08/08/18 16:15 Assessment and Plan (1) Acute systolic (congestive) heart failure Current Visit: Yes Status: Acute Code(s): I50.21 - ACUTE SYSTOLIC ( CONGESTIVE) HEART FAILURE SNOMED Code(s): 610733466 (2) Hypertension Current Visit: Yes Status: Chronic Code(s): I10 - ESSENTIAL (PRIMARY) HYPERTENSION SNOMED Code(s): 11645001 (3) Hyperlipidemia Current Visit: Yes Status: Chronic Code(s): E78.5 - HYPERLIPIDEMIA, UNSPECIFIED SNOMED Code(s): 44441261 (4) Noncompliance Current Visit: Yes Status: Chronic Code(s): Z91.19 - PATIENT'S NONCOMPLIANCE W OTH MEDICAL TREATMENT AND REGIMEN SNOMED Code(s): 5486604 (5) Depression Current Visit: Yes Status: Chronic Code(s): F32.9 - MAJOR DEPRESSIVE DISORDER, SINGLE EPISODE, UNSPECIFIED SNOMED Code(s): 63656316 (6) Tobacco abuse Current Visit: Yes Status: Chronic Code(s): Z72.0 - TOBACCO USE SNOMED Code(s): 904415789 (7) Alcoh dep NEC/NOS, unspec Current Visit: Yes Status: Chronic Code(s): F10.20 - ALCOHOL DEPENDENCE, UNCOMPLICATED SNOMED Code(s): 00336412 (8) Rapid atrial fibrillation Current Visit: Yes Status: Acute Code(s): I48.91 - UNSPECIFIED ATRIAL FIBRILLATION SNOMED Code(s): 270472057 Plan: PLAN: Cardiology on consult. Appreciate recommendations and input, they plan on discharge Monday. Continue metoprolol and Lasix per cardiology Daily weights Monitor labs GI prophylaxis: Protonix 40 mg PO Daily DVT prophylaxis: Eliquis Monitor vital signs and address as appropriate Discharge planning: Patient to return home when stable I'll reevaluate in the next 24 hours and expect discharge in 48 hours unless there is a change in his status.
[2018-08-11] MEDS: THIAMINE 100 MG TAB PO SCH (17:42)
[2018-08-11] MEDS: SODIUM CHLORIDE 0.9% 1,000 ML IV SCH (19:47)
[2018-08-11] MEDS: ATORVASTATIN 40 MG TAB PO SCH (19:47)
[2018-08-12] MEDS ORDERED: LEVOTHYROXINE 25 MCG TAB PO SCH (06:30)
[2018-08-12 06:42] LABS: Basophils # (A) 0.1 k/uL (0-0.2); Basophils % (A) 1 %; Eosinophils # (A) 0.3 k/uL (0-0.7); Eosinophils % (A) 4 %; HCT 50.2 % (39.0-53.0); Lymphocytes # (A) 2.7 k/uL (1.0-4.8); Lymphocytes % (A) 30 %; MCH 30.2 pg (25.0-35.0); MCHC 31.8 g/dL (31.0-37.0); MCV 94.9 fL (80.0-100.0); Mean Platelet Volume 7.1; Monocytes # (A) 0.6 k/uL (0-1.0); Monocytes % (A) 6 %; Neutrophils # (A) 5.3 k/uL (1.3-7.7); Neutrophils % (A) 58 %; Platelet Count 209 k/uL (150-450); RBC 5.29 m/uL (4.30-5.90); RDW 12.5 % (11.5-15.5); WBC 9.1 k/uL (3.8-10.6)
[2018-08-12 06:47] LABS: Calcium 9.3 mg/dL (8.4-10.2); Potassium 4.4 mmol/L (3.5-5.1)
[2018-08-12 09:23] VITALS: RESP 16; TEMP 96.6
[2018-08-12] MEDS: METOPROLOL SUCCINATE (ER) 100 MG TAB.ER.24H PO SCH (09:46)
[2018-08-12] MEDS: APIXABAN 5 MG TAB PO SCH (09:46)
[2018-08-12] MEDS: LOSARTAN 50 MG TAB PO SCH (09:46)
[2018-08-12] MEDS: NICOTINE 21MG/24HR PATCH TRANSDERM SCH (09:46)
[2018-08-12] MEDS: FUROSEMIDE 20 MG TAB PO SCH (09:46)
[2018-08-12] MEDS: SPIRONOLACTONE 25 MG TAB PO SCH (09:46)
--- NOTE | 2018-08-12 11:24 | P.PN ---
Subjective 62-year-old male with a past medical history of atrial fibrillation and hyperlipidemia who presented to the emergency room with a chief complaint of shortness of breath. Patient apparently stopped all his prescription medications over the summer because he was feeling better and wanted to detox from all the medications he was taking. The patient reports over the past week he has had progressive shortness of breath and occasional palpitations. Patient denies chest pain pain. Denies cough or sputum production. denies nausea or vomiting. Denies lightheadedness or dizziness. Chest x-ray: negative for an acute cardiopulmonary process. Heart over appears increased in size compared to old exam. EKG: atrial fibrillation with rapid ventricular response. Heart rate 133 Laboratory data on admission reveals white count 6.1. Hemoglobin 14.9. Platelet count 207. D-dimer 0.38. Sodium 140. Potassium 4.0. BUN 13. Creatinine 0.90. Magnesium 2.2. Troponin 0.015. BNP 1330. The patient was given IV cardizem bolus in drip in the emergency room. He was also given IV lasix and started on IV steroids. The patient was admitted to the hospital under the care of Dr. Campo. Consultations were placed to cardiology. 08/10/2018 Patient seen and examined at the bedside. Echocardiogram completed revealed severe global hypokinesis of LV, ejection fraction less than 20%, severely dilated LA, moderate mitral regurgitation, mild to moderate tricuspid regurgitation, mild pulmonary hypertension, and RVSP of 39.95. Patient remains on metoprolol 50 mg twice a day. He was started on Eliquis yesterday 5 mg twice a day. His heparin drip has been discontinued. He remains on IV Lasix 20 mg IV every 12 hours. He is afebrile. Heart rate is in the low 100s. 08/11/2018 Patient continues to complain of some mild shortness of breath with without exertion. Cardiology had started him on some new medications and are planning him staying through Monday. He denies any chest pains, nausea, or vomiting. He denies any dizziness or lightheadedness this time. He is tolerating his diet , but does not like hospital food. I discussed his case with cardiology today. Telemetry shows his heart rate in the 90s currently. 08/12/2018 Patient is doing well. He does still have some mild shortness of breath with exertion but minimal fatty at rest. He remains on Elequis, atorvastatin, Lasix , metoprolol, nicotine patch, and spironolactone. He denies any chest pains, pressures, nausea or vomiting. Objective - Vital Signs Vital signs: Vital Signs Temp 96.6 F L 08/12/18 08:55 Pulse 95 08/12/18 08:55 Resp 16 08/12/18 08:55 BP 136/85 08/12/18 08:55 Pulse Ox 94 L 08/12/18 08:55 Intake & Output 08/11/18 08/12/18 08/12/18 18:59 06:59 18:59 Intake Total 880 200 Output Total 1650 Balance -770 200 Weight 85 kg Intake: Oral 880 200 Output: Urine 1650 Other: Voiding Method Urinal Urinal # Voids 1 - Exam GENERAL: This is a 62-year-old male in no apparent distress at the time of examination. Pleasant and cooperative. Neck is supple. RESPIRATORY: Lungs diminished bilaterally. No use of accessory muscles. Patient maintaining oxygen saturation greater than 92%. No chest wall tenderness is noted on palpation or with deep breathing. CARDIOVASCULAR: Irregular rhythm. Telemetry reveals Afib. S1 and S2 noted. No systolic or diastolic murmur auscultated. No JVD noted. No S3 or S4 noted. GASTROINTESTINAL: No distention noted. Abdomen soft and round. Normal active bowel sounds auscultated x 4 quadrants. No pain or tenderness noted upon palpation. INTEGUMENTARY: No cyanosis. No jaundice. No rashes noted. No cellulitis noted. EXTREMITIES: 2+ peripheral pulses. No evidence of peripheral edema. No calf tenderness noted. NEUROLOGIC: Cranial nerves II-XII intact. PSYCHIATRIC: Awake, alert, and oriented X 3. Appropriate affect. Intact judgement and insight. - Labs CBC & Chem 7: 08/12/18 05:47 08/12/18 05:47 Labs: Abnormal Lab Results - Last 24 Hours (Table) 08/12/18 Range/Units 05:47 BUN 26 H (9-20) mg/dL Assessment and Plan (1) Acute systolic (congestive) heart failure Current Visit: Yes Status: Acute Code(s): I50.21 - ACUTE SYSTOLIC ( CONGESTIVE) HEART FAILURE SNOMED Code(s): 497628737 (2) Hypertension Current Visit: Yes Status: Chronic Code(s): I10 - ESSENTIAL (PRIMARY) HYPERTENSION SNOMED Code(s): 41664133 (3) Hyperlipidemia Current Visit: Yes Status: Chronic Code(s): E78.5 - HYPERLIPIDEMIA, UNSPECIFIED SNOMED Code(s): 08994230 (4) Noncompliance Current Visit: Yes Status: Chronic Code(s): Z91.19 - PATIENT'S NONCOMPLIANCE W OTH MEDICAL TREATMENT AND REGIMEN SNOMED Code(s): 0540337 (5) Depression Current Visit: Yes Status: Chronic Code(s): F32.9 - MAJOR DEPRESSIVE DISORDER, SINGLE EPISODE, UNSPECIFIED SNOMED Code(s): 10724601 (6) Tobacco abuse Current Visit: Yes Status: Chronic Code(s): Z72.0 - TOBACCO USE SNOMED Code(s): 610999821 (7) Alcoh dep NEC/NOS, unspec Current Visit: Yes Status: Chronic Code(s): F10.20 - ALCOHOL DEPENDENCE, UNCOMPLICATED SNOMED Code(s): 13473848 (8) Rapid atrial fibrillation Current Visit: Yes Status: Acute Code(s): I48.91 - UNSPECIFIED ATRIAL FIBRILLATION SNOMED Code(s): 899630311 Plan: PLAN: Cardiology on consult. Appreciate recommendations and input, they plan on discharge Monday. Continue metoprolol, Lasix, atorvastatin, Elequis, and spironolactone. CEWA protocol remains in place. Daily weights DVT prophylaxis: Eliquis Monitor vital signs and address as appropriate Discharge planning: Patient to return home when stable He will be reevaluated in the next 24 hours and expect discharge soon once cleared by cardiology.
--- NOTE | 2018-08-12 11:52 | P.PN ---
Subjective This is a 62-year-old gentleman who has a known history of paroxysmal atrial fibrillation, hyperlipidemia, family history of premature coronary artery disease, nicotine dependence, EtOH use, who used to follow with Dr. Strauss in the office, he states he has not followed with him for quite some time, patient had been on medications for his atrial fibrillation which she had discontinued in the summer because he felt well and states he wanted to cleanse his body of all medications. Patient did undergo cardiac catheterization in February 2015 which revealed normal coronary arteries with a calcified LAD, he also had an echocardiogram with Doppler study performed at that time which revealed an ejection fraction of 55-60%. He presents to the hospital on this occasion with 3 day duration or more of progressively worsening shortness of breath. He does also state that he felt his heart on occasion beat irregularly. EKG on arrival here showed atrial fibrillation with a rapid ventricular response, nonspecific ST-T wave changes. Chest x-ray did not reveal any active cardiopulmonary disease, heart however does appear increased in size as compared with old exam. Echocardiogram with Doppler study was performed which revealed severe LV dysfunction with an ejection fraction of 20%, dilated right ventricle, we switched him to long-acting metoprolol 100 mg daily, initiated losartan, discontinue his IV Lasix and started him on oral diuretics, we also added a small dose of Aldactone to his medication regime. Patient continues to be in atrial fibrillation this morning his heart rate is mostly in the 80s to 90s. He has been up ambulating without much difficulty. Denies shortness of breath or palpitations. Objective - Vital Signs Vital signs: Vital Signs Temp 96.6 F L 08/12/18 08:55 Pulse 95 08/12/18 08:55 Resp 16 08/12/18 08:55 BP 136/85 08/12/18 08:55 Pulse Ox 94 L 08/12/18 08:55 Intake & Output 08/11/18 08/12/18 08/12/18 18:59 06:59 18:59 Intake Total 880 200 Output Total 1650 Balance -770 200 Weight 85 kg Intake: Oral 880 200 Output: Urine 1650 Other: Voiding Method Urinal Urinal Urinal # Voids 1 - Exam PHYSICAL EXAMINATION: HEENT: [Head is atraumatic, normocephalic. Pupils equal, round. Neck is supple. There is no elevated jugular venous pressure.] HEART EXAMINATION: [Heart sounds irregularly irregular, S1 and S2 normal. No murmur or gallop heard.] CHEST EXAMINATION:[ Lungs are clear to auscultation and precussion. No chest wall tenderness is noted on palpation or with deep breathing.] ABDOMEN: [ Soft, nontender. Bowel sounds are heard. No organomegaly noted]. EXTREMITIES:[ 2+ peripheral pulses with no evidence of peripheral edema and no calf tenderness noted]. NEUROLOGIC [patient is awake, alert and oriented x3.] . - Labs CBC & Chem 7: 08/12/18 05:47 08/12/18 05:47 Labs: Abnormal Lab Results - Last 24 Hours (Table) 08/12/18 Range/Units 05:47 BUN 26 H (9-20) mg/dL Assessment and Plan Assessment: #1 atrial fibrillation with rapid ventricular response, paroxysmal #2 congestive heart failure, LV function unknown, likely precipitated by A. fib with RVR #3 nicotine dependence #4 hypertension #5 hyperlipidemia #6 prior history of atrial fibrillation, patient quit taking his a blood thinner and other medications this summer #7 EtOH use, patient states he drinks a pint of alcohol on the weekends #8 cardiomyopathy, likely nonischemic, could be secondary to EtOH. EF less than 20% Plan: From Cardiology's perspective, patient may be discharged home today. He will follow-up with Dr. 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 May consider doing cardiac catheterization as an outpatient in the future if necessary. The above dictated assessment and findings were discussed with signing physician. The impression and plan of care have been directed as dictated. Roxanne Matthew, Nurse Practitioner, acting as scribe for signing physician.
[2018-08-12 12:03] VITALS: BP 136/80
[2018-08-12 12:04] VITALS: PULSE 95
[2018-08-12] MEDS: THIAMINE 100 MG TAB PO SCH (12:23)
--- NOTE | 2018-08-12 15:45 | P.DS ---
Providers Date of admission: 08/08/18 18:53 Expected date of discharge: 08/12/18 Attending physician: Justino Campo Consults: 08/08/18 18:53 Consult Physician Routine Consulting Provider: Dewayne Dover Consult Reason/Comments: Rapid A. fib, CHF Do you want consulting provider notified?: Yes Primary care physician: Justino Campo - Discharge Diagnosis(es) (1) Acute systolic (congestive) heart failure Current Visit: Yes Status: Acute (2) Hypertension Current Visit: Yes Status: Chronic (3) Hyperlipidemia Current Visit: Yes Status: Chronic (4) Noncompliance Current Visit: Yes Status: Chronic (5) Depression Current Visit: Yes Status: Chronic (6) Tobacco abuse Current Visit: Yes Status: Chronic (7) Alcoh dep NEC/NOS, unspec Current Visit: Yes Status: Chronic (8) Rapid atrial fibrillation Current Visit: Yes Status: Acute Hospital Course: 62-year-old male with a past medical history of atrial fibrillation and hyperlipidemia who presented to the emergency room with a chief complaint of shortness of breath. Patient apparently stopped all his prescription medications over the summer because he was feeling better and wanted to detox from all the medications he was taking. The patient reports over the past week he has had progressive shortness of breath and occasional palpitations. Patient denies chest pain pain. Denies cough or sputum production. denies nausea or vomiting. Denies lightheadedness or dizziness. Chest x-ray: negative for an acute cardiopulmonary process. Heart over appears increased in size compared to old exam. EKG: atrial fibrillation with rapid ventricular response. Heart rate 133 Laboratory data on admission reveals white count 6.1. Hemoglobin 14.9. Platelet count 207. D-dimer 0.38. Sodium 140. Potassium 4.0. BUN 13. Creatinine 0.90. Magnesium 2.2. Troponin 0.015. BNP 1330. The patient was given IV cardizem bolus in drip in the emergency room. He was also given IV lasix and started on IV steroids. The patient was admitted to the hospital under the care of Dr. Campo. Consultations were placed to cardiology. 08/10/2018 Patient seen and examined at the bedside. Echocardiogram completed revealed severe global hypokinesis of LV, ejection fraction less than 20%, severely dilated LA, moderate mitral regurgitation, mild to moderate tricuspid regurgitation, mild pulmonary hypertension, and RVSP of 39.95. Patient remains on metoprolol 50 mg twice a day. He was started on Eliquis yesterday 5 mg twice a day. His heparin drip has been discontinued. He remains on IV Lasix 20 mg IV every 12 hours. He is afebrile. Heart rate is in the low 100s. 08/11/2018 Patient continues to complain of some mild shortness of breath with without exertion. Cardiology had started him on some new medications and are planning him staying through Monday. He denies any chest pains, nausea, or vomiting. He denies any dizziness or lightheadedness this time. He is tolerating his diet , but does not like hospital food. I discussed his case with cardiology today. Telemetry shows his heart rate in the 90s currently. 08/12/2018 Patient is doing well. He does still have some mild shortness of breath with exertion but minimal fatty at rest. He remains on Elequis, atorvastatin, Lasix , metoprolol, nicotine patch, and spironolactone. He denies any chest pains, pressures, nausea or vomiting. addendum: cardiology cleared patient for D/C this PM 08/12/2018 Patient Condition at Discharge: Stable Plan - Discharge Summary Discharge Rx Participant: No New Discharge Prescriptions: New Apixaban [Eliquis] 5 mg PO BID #60 tab Atorvastatin [Lipitor] 40 mg PO HS #30 tab Furosemide [Lasix] 20 mg PO BID@0900,1600 #60 tab Losartan [Cozaar] 50 mg PO DAILY #30 tab Metoprolol Succinate (ER) [Toprol XL] 100 mg PO DAILY #30 tab.er.24h Spironolactone [Aldactone] 25 mg PO DAILY #30 tab Nicotine 21Mg/24Hr Patch [Habitrol] 1 patch TRANSDERM DAILY #14 patch No Action Multivitamins, Thera [Multivitamin (formulary)] 1 tab PO DAILY Discharge Medication List Multivitamins, Thera [Multivitamin (formulary)] 1 tab PO DAILY 08/08/18 [History ] Apixaban [Eliquis] 5 mg PO BID #60 tab 08/12/18 [Rx] Atorvastatin [Lipitor] 40 mg PO HS #30 tab 08/12/18 [Rx] Furosemide [Lasix] 20 mg PO BID@0900,1600 #60 tab 08/12/18 [Rx] Losartan [Cozaar] 50 mg PO DAILY #30 tab 08/12/18 [Rx] Metoprolol Succinate (ER) [Toprol XL] 100 mg PO DAILY #30 tab.er.24h 08/12/18 [ Rx] Nicotine 21Mg/24Hr Patch [Habitrol] 1 patch TRANSDERM DAILY #14 patch 08/12/18 [ Rx] Spironolactone [Aldactone] 25 mg PO DAILY #30 tab 08/12/18 [Rx] Follow up Appointment(s)/Referral(s): [facility] [Provider Group] - 1 Week Justino Campo MD [Primary Care Provider] - 08/15/18 11:15 am (Monday) Patient Instructions/Handouts: Heart Failure (DC), A-fib (Atrial Fibrillation) (DC), COPD (Chronic Obstructive Pulmonary Disease) (DC) Discharge Disposition: HOME SELF-CARE
--- NOTE | 2018-08-13 09:39 | CDI ---
Last Revision, October 2017 Documentation Clarification Form Date: 08/13/2018 9:34:49 AM From: Tanvi Bearden Phone: If you have a question about this query, please contact Anita Bridges Nremt at [phone] between 8am and 5pm. Admit Date: 08/09/2018 12:06:00 AM Patient Name: Yang Silverman Visit Number: [id number] Discharge Date: 08/12/18 ATTENTION: The Clinical Documentation Specialists (CDI) and [facility] Coding Staff appreciate your assistance in clarifying documentation. Please respond to the clarification below the line at the bottom and electronically sign. The CDI & [facility] Coding staff will review the response and follow-up if needed. Please note: Queries are made part of the Legal Health Record. If you have any questions, please contact the author of this message via ITS. Debi Brownlee MD Pneumonia was documented as possible gram negative, communitu acquired, rule out aspiration. History/Risk Factors: Patient has Parkinson's Clinical Indicators: WBC/Left shift: 15.7 X-ray: Poor inspiration infiltrate and atelectasis Antibiotics Rocephin and Zosyn Swallow evaluation to be done outpatient In order to capture the severity of condition, please clarify if the condition signifies and you are treating for: Aspiration Pneumonia, identify if: Due to solids or liquids Due to anesthesia during L/D Due to anesthesia during puerperium Bacterial Pneumonia, specify causal organism (if known) Gram Negative Pneumonia Other, please specify Unable to determine Is this for yang silverman or yaz rankin? The query appeared under Yaz who is NOT my patient MTDD
== END 2018-08-12 16:36 | disposition home or self-care (01) | DRG 308 ==
LOC: EC 15:54 → 6SEL 18:53
PROVIDERS: ADMIT Family Medicine; ATTEND Family Medicine
DX: I48.0 Paroxysmal atrial fibrillation (principal); I50.23 Acute on chronic systolic (congestive) heart failure; J44.1 Chronic obstructive pulmonary disease with (acute) exacerbation; J80 Acute respiratory distress syndrome; E78.5 Hyperlipidemia, unspecified; F10.20 Alcohol dependence, uncomplicated; F17.210 Nicotine dependence, cigarettes, uncomplicated; F32.9 Major depressive disorder, single episode, unspecified; I08.1 Rheumatic disorders of both mitral and tricuspid valves; I11.0 Hypertensive heart disease with heart failure; I25.10 Atherosclerotic heart disease of native coronary artery without angina pectoris; I25.84 Coronary atherosclerosis due to calcified coronary lesion; I27.20 Pulmonary hypertension, unspecified; I42.1 Obstructive hypertrophic cardiomyopathy; Z79.899 Other long term (current) drug therapy; Z82.49 Family history of ischemic heart disease and other diseases of the circulatory system; Z91.19 Patient's noncompliance with other medical treatment and regimen; Z82.3 Family history of stroke; Z80.9 Family history of malignant neoplasm, unspecified
CPT/HCPCS: 36415; 71046; 80048; 80053; 82550; 82553; 83036; 83735; 83880; 84443; 84484; 85025; 85379; 85610; 85730; 93005; 93306; 94640; 96365; 96366; 96368; 96375; 96376; 99291

== ENCOUNTER → 2018-12-28 | Outpatient (CLI) | payer BC ==
[2018-12-28 12:52] LABS: HCT 44.8 % (39.0-53.0); HGB 14.6 gm/dL (13.0-17.5); MCHC 32.7 g/dL (31.0-37.0); MCV 94.8 fL (80.0-100.0); Mean Platelet Volume 7.1; Platelet Count 196 k/uL (150-450); RBC 4.73 m/uL (4.30-5.90); RDW 12.7 % (11.5-15.5); WBC 8.6 k/uL (3.8-10.6)
== END | disposition home or self-care (01) ==
LOC: LABPAT 11:17
PROVIDERS: ATTEND Internal Medicine Cardiovascular Disease
DX: Z01.812 Encounter for preprocedural laboratory examination (principal); I48.2 Chronic atrial fibrillation; I42.0 Dilated cardiomyopathy; I50.22 Chronic systolic (congestive) heart failure
CPT/HCPCS: 36415; 80051; 82565; 84520; 85027

== ENCOUNTER 2019-01-11 09:20 | Day surgery (SDC) | payer BC ==
[2019-01-09 14:10] VITALS: BMI 25.7
[~2019-01-11 09:20] MED LIST: LACTATED RINGERS 1,000 ML IV SCH; SODIUM CHLORIDE 0.9% 1,000 ML IV SCH
[2019-01-11] MEDS ORDERED: SODIUM CHLORIDE 0.9% 500 ML 500 ML IV ONE (09:29)
[2019-01-11] MEDS ORDERED: PROPOFOL 10 MG/ML 20 ML VIAL IV ONE (10:27)
[2019-01-11] MEDS ORDERED: BENZOCAINE SPRAY 1 CAN MUCOUS MEM ONE ×2 (11:00→11:05)
[2019-01-11 11:23] VITALS: TEMP 97
[2019-01-11] MEDS ORDERED: SODIUM CHLORIDE 0.9% 1,000 ML IV SCH (11:30)
[2019-01-11 12:22] VITALS: RESP 16
[2019-01-11 12:31] LABS: Basophils # (A) 0.1 k/uL (0-0.2); Basophils % (A) 1 %; Eosinophils # (A) 0.2 k/uL (0-0.7); Eosinophils % (A) 3 %; HGB 14.5 gm/dL (13.0-17.5); Lymphocytes # (A) 2.4 k/uL (1.0-4.8); Lymphocytes % (A) 30 %; MCH 31.5 pg (25.0-35.0); MCHC 33.1 g/dL (31.0-37.0); MCV 95.2 fL (80.0-100.0); Mean Platelet Volume 7.9; Monocytes # (A) 0.5 k/uL (0-1.0); Monocytes % (A) 6 %; Neutrophils # (A) 4.6 k/uL (1.3-7.7); Neutrophils % (A) 59 %; Platelet Count 212 k/uL (150-450); RBC 4.62 m/uL (4.30-5.90); RDW 12.4 % (11.5-15.5); WBC 7.8 k/uL (3.8-10.6)
[2019-01-11 12:37] LABS: Calcium 9.6 mg/dL (8.4-10.2); Potassium 4.7 mmol/L (3.5-5.1)
[2019-01-11 14:38] VITALS: BP 156/92; PULSE 75
--- NOTE | 2019-01-14 15:03 | P.TEE ---
Indications for Procedure(s): Rule out intracavity thrombus before cardioversion Date of Procedure: 01/11/19 Preoperative Diagnosis: Atrial fibrillation Postoperative Diagnosis: Conversion to sinus rhythm Description of Procedure(s): INDICATION: To assess and rule out any clot in the left atrial appendage before cardioversion CONSENT:. Verbal consent was obtained from the patient PROCEDURE: Patient was brought to the lab in a fasting state. Patient was prepped and draped in the usual fashion. He was given IV sedation by department of anesthesia. A lubricated Omni probe was introduced into the oropharynx and was advanced into the esophagus. Patient tolerated the procedure well. No immediate complications. Color, pulsed and continuous wave Doppler studies were done. Saline contrast bubble injections were performed FINDINGS:. The aortic valve is tricuspid. Mitral valve is bicuspid and appears to be normal. There is trace to mild aortic and mitral regurgitation. The left atrial appendage is free of any clot. The interatrial septum is intact. Contrast bubble injection did not reveal any crossing of the bubbles. Left ventricle function could not be adequately assessed IMPRESSION:. No evidence of clot in left atrial appendage PLAN: Proceed with cardioversion
--- NOTE | 2019-01-14 15:04 | P.PCN ---
Date of Procedure: 01/11/19 Preoperative Diagnosis: Atrial fibrillation Postoperative Diagnosis: Conversion to sinus rhythm Procedure(s) Performed: Cardioversion Description of Procedure: This 63-year-old gentleman was brought in for elective cardioversion. Patient had a ADRIENNE examination. This showed that patient doesn't have any clot in the left atrial appendage. Procedure: Patient was given anesthesia by department of anesthesia. A synchronized shock of 200 J was applied with anterior posterior paddles. Patient converted to sinus rhythm. No immediate complications. Plan: Patient will be monitored for several hours. Patient is also initiated on amiodarone therapy. We'll discharge home on home medications plus amiodarone. Follow-up in the office in one week.
== END 2019-01-11 13:07 | disposition home or self-care (01) ==
LOC: CATHCVL 09:20
PROVIDERS: ATTEND Internal Medicine Cardiovascular Disease
DX: I48.1 Persistent atrial fibrillation (principal); I48.2 Chronic atrial fibrillation; I08.0 Rheumatic disorders of both mitral and aortic valves; E78.5 Hyperlipidemia, unspecified; I25.119 Atherosclerotic heart disease of native coronary artery with unspecified angina pectoris; I42.0 Dilated cardiomyopathy; I42.2 Other hypertrophic cardiomyopathy; I50.21 Acute systolic (congestive) heart failure; Z82.49 Family history of ischemic heart disease and other diseases of the circulatory system; Z87.891 Personal history of nicotine dependence; Z79.01 Long term (current) use of anticoagulants; Z79.899 Other long term (current) drug therapy
CPT/HCPCS: 93312; 93320; 93325; 92960; 80048; 85025; J2704

== ENCOUNTER 2019-04-01 12:47 | Day surgery (SDC) | payer BC ==
[2019-03-28 14:11] VITALS: BMI 25.0
[~2019-04-01 12:47] MED LIST changes: +DEXAMETHASONE SOD PHOSPHATE 10 MG/ML 1 ML VIAL IV ONE; +HYDROmorphone 0.5 MG/0.5 ML SYRINGE IVP PRN; +MIDAZOLAM 2 MG/2 ML VIAL IV PRN; +ONDANSETRON 4 MG/2 ML VIAL IVP ONE
[2019-04-01 13:48] LABS: Calcium 9.9 mg/dL (8.4-10.2); Potassium 4.6 mmol/L (3.5-5.1)
[2019-04-01] MEDS ORDERED: GLYCOPYRROLATE 0.2 MG/ML 2 ML VIAL ONE (16:17)
[2019-04-01] MEDS ORDERED: fentaNYL (PF) 50 MCG/ML 2 ML AMP ONE (16:17)
[2019-04-01] MEDS ORDERED: MIDAZOLAM 2 MG/2 ML VIAL ONE (16:17)
[2019-04-01] MEDS ORDERED: KETAMINE 10 MG/ML 20 ML VIAL ONE (16:17)
[2019-04-01] MEDS ORDERED: PROTAMINE SULFATE 10 MG/ML 5 ML VIAL IV ONE (16:17)
[2019-04-01] MEDS ORDERED: ePHEDrine SULFATE/0.9% NACL/PF 50 MG/5 ML SYRINGE IV ONE (16:17)
[2019-04-01] MEDS ORDERED: NEOSTIGMINE 1 MG/ML 10 ML VIAL ONE (16:17)
[2019-04-01] MEDS ORDERED: SUCCINYLCHOLINE CHLORIDE 100 MG/5 ML SYR IV ONE (16:17)
[2019-04-01] MEDS ORDERED: PROPOFOL 10 MG/ML 20 ML VIAL IV ONE (16:17)
[2019-04-01] MEDS ORDERED: HEPARIN SODIUM,PORCINE 10,000 UNIT/ML 1 ML VIAL ONE (16:17)
[2019-04-01] MEDS ORDERED: VECURONIUM 10 MG VIAL IV ONE (16:17)
[2019-04-01] MEDS ORDERED: LIDOCAINE 1% INJ 10MG/ML (20 ML MDV) ONE (16:30)
[2019-04-01] MEDS ORDERED: LIDOCAINE 1% INJ 10MG/ML (20 ML MDV) SQ ONE (16:51)
[2019-04-01] MEDS ORDERED: HEPARIN SOD,PORK IN 0.45% NACL 25,000 UNIT in 0.45% NACL 1 250ML.BAG IV ONE (17:12)
[2019-04-01] MEDS ORDERED: HEPARIN SODIUM (1,000 UNIT/ML) 1,000 UNIT in SODIUM CHLORIDE 0.9% 1,000 ML IRRIGATION ONE (17:13)
[2019-04-01] MEDS ORDERED: IOPAMIDOL-370 100ML BTL INJ ONE (19:01)
[2019-04-01] MEDS ORDERED: LACTATED RINGERS 1,000 ML IV ONE (19:53)
[2019-04-01] MEDS ORDERED: ACETAMINOPHEN TAB 325 MG TAB PO PRN (19:57)
[2019-04-01] MEDS ORDERED: FUROSEMIDE 10 MG/ML 4 ML VIAL ONE (19:57)
[2019-04-01] MEDS ORDERED: FUROSEMIDE 10 MG/ML 4 ML VIAL IV ONE (19:58)
[2019-04-01] MEDS ORDERED: HYDROcodone/APAP 5-325MG 1 EACH TAB PO PRN (20:03)
[2019-04-01] MEDS ORDERED: ACETAMINOPHEN IV (For NPO) 1,000 MG in EMPTY BAG 1 BAG IVPB ONE (20:03)
--- NOTE | 2019-04-01 20:17 | P.PCN ---
Preoperative Diagnosis: Diagnosis Atrial fibrillation, symptomatic, refractory to therapy Cardio myopathy Result Successful pulmonary vein isolation of all veins using cryo-ablation Complete entrance block in all 4 veins confirmed No evidence for phrenic nerve injury Esophageal deflection YES Electrical cardioversion with a synchronized shock across the chest YES Procedure details Patient was brought to the EP lab in a fasting state. Written informed consent was obtained prior to the procedure. Procedure performed under general anesthesia After initial muscle relaxant use, muscle relaxants were not given thereafter in order to assess phrenic nerve during procedure. Patient prepped and draped as per protocol Full cryo-set up with standard preparation of the cryoablation tools done. Femoral Venous access obtained on the right and left groins Venous and arterial Sheaths placed. Diagnostic catheters for the high right atrium, phrenic nerve stimulation and pacing, His bundle, RV and coronary sinus placed Intracardiac echo catheter placed. Long sheath placed in the right atrium Left and right transseptal catheterization performed under intracardiac echo guidance. Intravenous heparin with aCT above 300 Later, catheter positioning and balloon positioning in the left atrium, under intracardiac echo guidance Diagnostic EP study with Coronary sinus pacing and recording Baseline measurements Sinus cycle length 855 ms, NV interval 151 ms, QRS 95 ms, QT interval 431 ms PH 58 and HV interval 35 ms Atrial pacing performed from the high right atrium and the coronary sinus RV pacing Transseptal catheterization performed RA pressure 14/8/11 LA pressure 22/7/14 Transseptal catheterization performed with standard sheath. The cryoablation sheath was then placed with an over the wire exchange without any acute complications. All 4 pulmonary veins were isolated in the following sequence: Left superior followed by left inferior followed by right superior followed by right inferior The cryo-ablation balloon was placed at the os of each vein 1.5 mL of IV dye was injected to confirm an occluded vein Goal during cryoablation was to achieve complete occlusion of the pulmonary vein, achieve -30 degrees C at 30 seconds and achieve -40 degrees C at 60 seconds and a time to effect of less than 60-90 seconds, . If not the balloon w as repositioned to obtain this result After completion of Cryoblation with durations from 180-240 seconds, entrance block was confirmed with the Attain circular catheter in a roving fashion around the antrum of the pulmonary veins Phrenic nerve pacing was performed from the SVC, right innominate vein area and diaphragm voltage was monitored. Diaphragmatic contractions were also monitored manually for strength of contraction. Parameter goals for each cryo freeze Complete occlusion of the appropriate vein -30 degrees C by 30 seconds -40 degrees C by 60 seconds Minimum between minus 40-55 degrees C Thaw time greater than 10 seconds Balloon visualized by intracardiac echo The esophagus was intubated. Esophageal Temperature monitoring with a CIRCA catheter formed. Esophageal deflection for hypothermia of the esophagus below 30 degrees C Left superior pulmonary vein/left common vein Complete isolation, entrance block Left inferior pulmonary vein/left common vein Complete isolation, entrance block Right superior pulmonary vein, during phrenic nerve pacing Complete isolation, entrance block Right inferior pulmonary vein, during phrenic nerve pacing Complete isolation, entrance block Small right middle vein 90 sec cryoablation, complete isolation of the antrum At the end of the procedure the Achieve catheter was once again used to check for entrance block Phrenic nerve stimulation was performed to confirm diaphragmatic stimulation the end of the procedure Cine fluoroscopy was performed at the very end of the procedure to confirm movement of both diaphragms with inspiration and expiration The patient remained in atrial fibrillation, disorganize atrial activity The cryo sheath was removed. The RF ablation catheter was placed in the left atrium 3-D electro anatomic mapping was performed Complete isolation with entrance block of all pulmonary veins was confirmed Linear ablation along the left atrial roof anteriorly was performed with a complete anatomic line of block At the end of the procedure the patient was extubated Heparin was reversed Venous sheaths were removed and hemostasis assured Procedures performed (PVI - CRYO Ablation as well as RF ablation) Diagnostic EP study CS pacing and recording Left and right transseptal catheterization 3-D mapping of the left atrium Intracardiac echocardiography Pulmonary vein isolation with transseptal and comprehensive EPS, [id number] Left atrial roof line, +[id number] Electrical cardioversion with a synchronized shock across the chest [id number]
--- NOTE | 2019-04-01 20:18 | P.PRLE ---
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 Hopefully this results in improvement in his LV size and function He will continue anticoagulation lifelong Thank you for entrusting me with the care of the patient Warm regards Sincerely Walt Newell
[2019-04-01] MEDS ORDERED: APIXABAN 5 MG TAB PO SCH (23:00)
[2019-04-02] MEDS ORDERED: METOPROLOL SUCCINATE (ER) 100 MG TAB.ER.24H PO SCH (09:00)
[2019-04-02] MEDS ORDERED: APIXABAN 5 MG TAB PO SCH (09:00)
[2019-04-02] MEDS ORDERED: ATORVASTATIN 40 MG TAB PO SCH (09:00)
[2019-04-02] MEDS ORDERED: SPIRONOLACTONE 25 MG TAB PO SCH (09:00)
[2019-04-02] MEDS ORDERED: FUROSEMIDE 20 MG TAB PO SCH (09:00)
[2019-04-02] MEDS ORDERED: LOSARTAN 50 MG TAB PO SCH (09:00)
[2019-04-02] MEDS ORDERED: AMIODARONE 100 MG TAB PO SCH (09:00)
--- NOTE | 2019-04-02 10:27 | P.DS ---
Providers Attending physician: Walt Newell Primary care physician: [facility] Course: Patient is doing well. He is a mild sore throat. He denies any chest discomfort dizziness lightheadedness His groins of healed up well. It is no hematoma His vitals a state, afebrile 98.4F respirations are normal no orthopnea blood pressure 150-69 mmHg Breath sounds are clear no rhonchi no crackles Heart sounds are soft no rub no gallop Abdomen is soft Extremities are warm Impression Persistent symptomatic atrial fibrillation refractory to amiodarone and electrical cardioversion Successful pulmonary vein isolation with entrance block Linear ablation in the left atrial roof Electrical cardioversion for persistent atrial fibrillation thereafter Currently on low-dose amiodarone of 100 mg by mouth daily Suggest Ambulate in the hallways and discharge home by 5 PM if patient is mechanically stable Continue anticoagulation. No changes in medications See Dr. Strauss in about a week Abstinence from alcohol use Patient may go back to work in about 3 days Restrictions explained Plan - Discharge Summary Discharge Rx Participant: Yes New Discharge Prescriptions: Continue Losartan [Cozaar] 50 mg PO DAILY #30 tab Metoprolol Succinate (ER) [Toprol XL] 100 mg PO DAILY #30 tab.er.24h Spironolactone [Aldactone] 25 mg PO DAILY #30 tab Atorvastatin [Lipitor] 40 mg PO DAILY Furosemide [Lasix] 20 mg PO DAILY Apixaban [Eliquis] 5 mg PO DAILY Amiodarone (Unknown Dose) 0.5 tab PO DAILY Discharge Medication List Losartan [Cozaar] 50 mg PO DAILY #30 tab 08/12/18 [Rx] Metoprolol Succinate (ER) [Toprol XL] 100 mg PO DAILY #30 tab.er.24h 08/12/18 [Rx] Spironolactone [Aldactone] 25 mg PO DAILY #30 tab 08/12/18 [Rx] Atorvastatin [Lipitor] 40 mg PO DAILY 01/11/19 [History] Furosemide [Lasix] 20 mg PO DAILY 01/11/19 [History] Amiodarone (Unknown Dose) 0.5 tab PO DAILY 03/28/19 [History] Apixaban [Eliquis] 5 mg PO DAILY 03/28/19 [History] Follow up Appointment(s)/Referral(s): Noy Strauss MD [STAFF PHYSICIAN] - 1 Week (Follow Dr. Strauss within one week) Activity/Diet/Wound Care/Special Instructions: Post EP study - Ablation instructions 1. Keep access sites dry for 2 days. 2. No heavy lifting or straining for 2 days. 3. Avoid bending the hips repeatedly for 2 days. 4. You may go up and down stairs slowly Call if the following is noted 1. Bleeding, increasing swelling or pain at the access sites. 2. Increasing chest discomfort, especially upon taking a deep breath. 3. Increasing shortness of breath, at rest or with exertion. 4. Undue cough / phlegm 5. Difficulty or pain while swallowing. 6. Pain or change in color in the extremities. 7. Fever, chills, rigors. 8. Increasing headache or neurologic symptoms. 9. Dizziness, fainting, palpitations
[2019-04-02 15:48] VITALS: BP 114/64; PULSE 64; RESP 16; TEMP 98.1
== END 2019-04-02 17:30 | disposition home or self-care (01) ==
LOC: CATHEP 12:47 → 1SOBS 19:50 → CATHEP 04-02 17:30
PROVIDERS: ATTEND Internal Medicine Clinical Cardiac Electrophysiology
DX: I48.1 Persistent atrial fibrillation (principal); I42.0 Dilated cardiomyopathy; I25.10 Atherosclerotic heart disease of native coronary artery without angina pectoris; E78.5 Hyperlipidemia, unspecified; I50.9 Heart failure, unspecified; Z79.01 Long term (current) use of anticoagulants; Z79.899 Other long term (current) drug therapy; Z87.891 Personal history of nicotine dependence; Z82.49 Family history of ischemic heart disease and other diseases of the circulatory system
CPT/HCPCS: 85347; 92960; 93662; 93613; 93656; 93657; 80048; C1769 ×5; C1894 ×2; C1730 ×2; C1759; C1893; C1733; C1766; C1732; J2250; J2720; J1644 ×3; J1940; J2710; J2001; J3010; J0330; J2704; Q9967

== ENCOUNTER → 2019-06-28 | Outpatient (CLI) | payer BC ==
--- NOTE | 2019-06-29 10:03 | US ---
EXAMINATION TYPE: US kidneys/renal and bladder DATE OF EXAM: 06/28/2019 COMPARISON: NONE CLINICAL HISTORY: Chronic kidney disease stage III N18.3. Pt states recent abnormal labs EXAM MEASUREMENTS: Right Kidney: 12.1 x 6.0 x 6.0 cm Left Kidney: 11.4 x 3.8 x 4.5 cm Right Kidney: No evidence of hydro, appeared wnl Left Kidney: Cortical thinning, smaller in size when compared to right kidney Bladder: wnl Bilateral Jets seen: Only right jet visualized Incidental cyst right medial lobe of liver= 2.3 x 2.1 x 2.4 cm There is no evidence for hydronephrosis at this point in time. No nephrolithiasis is seen. No matty s are identified. The urinary bladder is anechoic. Bilateral ureteral jets are seen. IMPRESSION: 1. Left-sided renal cortical thinning. 2. Hepatic cyst.
== END | disposition home or self-care (01) ==
LOC: RADUSMAIN 16:04
PROVIDERS: ATTEND Family Medicine
DX: N28.89 Other specified disorders of kidney and ureter (principal)
CPT/HCPCS: 76770

== ENCOUNTER → 2021-02-03 | Outpatient (CLI) | payer BC ==
--- NOTE | 2021-02-03 22:24 | XR ---
EXAMINATION TYPE: XR chest 2V DATE OF EXAM: 02/03/2021 COMPARISON: 926 CT INDICATION: Short of breath A. fib TECHNIQUE: Frontal and lateral views of the chest are obtained. FINDINGS: The heart size is normal. The pulmonary vasculature is normal. The lungs are clear. IMPRESSION: 1. No acute pulmonary process.
[2021-02-04 00:43] LABS: Basophils # (A) 0.05 X 10*3/uL (0.00-0.10); Basophils % (A) 0.9 %; Eosinophils # (A) 0.04 X 10*3/uL (0.04-0.35); Eosinophils % (A) 0.7 %; HCT 40.2 % (39.6-50.0); HGB 13.3 g/dL (13.0-17.0); Lymphocytes # (A) 1.41 X 10*3/uL (0.90-5.00); Lymphocytes % (A) 25.1 %; MCH 31.1 pg (27.0-32.0); MCHC 33.1 g/dL (32.0-37.0); MCV 94.1 fL (80.0-97.0); Mean Platelet Volume 11.2 fL (9.5-12.2); Monocytes # (A) 1.07 X 10*3/uL (0.20-1.00); Neutrophils # (A) 3.04 X 10*3/uL (1.80-7.70); Neutrophils % (A) 54.1 %; Platelet Count 182 X 10*3/uL (140-440); RBC 4.27 X 10*6/uL (4.40-5.60); RDW 12.8 % (11.5-14.5); WBC 5.62 X 10*3/uL (4.50-10.00)
[2021-02-04 07:15] LABS: African American GFR (CKD) 55.8 (60.0-200.0); Albumin 4.3 g/dL (3.80-4.90); Albumin/Globulin Ratio 1.72 (1.60-3.17); Anion Gap 12.2 mmol/L (4.00-12.00); Calcium 9.5 mg/dL (8.7-10.3); Carbon Dioxide 19.8 mmol/L (21.6-31.8); Globulin 2.5 g/dL (1.6-3.3); Non-African American GFR(CKD) 48.2 (60.0-200.0); Total Bilirubin 0.6 mg/dL (0.2-1.2); Total Protein 6.8 g/dL (6.2-8.2)
[2021-02-04 07:23] LABS: T4, Free (Free Thyroxine) 0.9 ng/dL (0.80-1.80)
== END | disposition home or self-care (01) ==
LOC: LABWHC1 16:16
PROVIDERS: ATTEND Internal Medicine Cardiovascular Disease
DX: I48.19 Other persistent atrial fibrillation (principal); Z86.79 Personal history of other diseases of the circulatory system; I42.0 Dilated cardiomyopathy
CPT/HCPCS: 36415; 71046; 80053; 83880; 84439; 84443; 85025

== ENCOUNTER → 2021-02-10 | Outpatient (CLI) | payer BC, MEDICARE | END | disposition home or self-care (01) | LOC: LABWHC1 15:38 | PROVIDERS: ATTEND Family Medicine | DX: U07.1 COVID-19 (principal) | CPT/HCPCS: U0003; C9803; U0005 ==

== ENCOUNTER 2021-04-08 08:30 | Day surgery (SDC) | payer MEDICARE ==
[2021-04-06 10:13] VITALS: BMI 24.3
[~2021-04-08 08:30] MED LIST changes: -DEXAMETHASONE SOD PHOSPHATE 10 MG/ML 1 ML VIAL IV ONE; -HYDROmorphone 0.5 MG/0.5 ML SYRINGE IVP PRN; -MIDAZOLAM 2 MG/2 ML VIAL IV PRN; -ONDANSETRON 4 MG/2 ML VIAL IVP ONE; -SODIUM CHLORIDE 0.9% 1,000 ML IV SCH
[2021-04-08 08:46] VITALS: TEMP 97.8
[2021-04-08] MEDS ORDERED: LACTATED RINGERS 1,000 ML IV ONE (08:46)
[2021-04-08] MEDS ORDERED: PROPOFOL 10 MG/ML 20 ML VIAL IV ONE (09:30)
[2021-04-08] MEDS ORDERED: LIDOCAINE 1% INJ 10MG/ML (20 ML MDV) ONE (09:30)
--- NOTE | 2021-04-08 09:35 | P.GSHP ---
History of Present Illness H&P Date: 04/08/21 Chief Complaint: Screening colonoscopy This is a 65-year-old male presents today for screening colonoscopy. Patient denies a significant GI complaints. Past Medical History Past Medical History: Atrial Fibrillation, Chest Pain / Angina, Hyperlipidemia, Hypertension Additional Past Medical History / Comment(s): see dr lake's H&P History of Any Multi-Drug Resistant Organisms: None Reported Past Surgical History: Heart Catheterization, Tonsillectomy Additional Past Surgical History / Comment(s): colonoscopy, ear sx age 7, lt mid dle finger reattatched after table saw injury, cryoblation for a-fib (04/01/19) Past Anesthesia/Blood Transfusion Reactions: No Reported Reaction Smoking Status: Former smoker - Past Family History Father Family Medical History: CVA/TIA Additional Family Medical History / Comment(s): fall w/ head injury/skull fx in the Mother Family Medical History: Cancer Medications and Allergies Home Medications Medication Instructions Recorded Confirmed Type Metoprolol Succinate (ER) [Toprol 100 mg PO DAILY #30 tab.er.24h 08/12/18 04/06/21 Rx XL] Atorvastatin [Lipitor] 40 mg PO DAILY 01/11/19 04/06/21 History Furosemide [Lasix] 20 mg PO DAILY 01/11/19 04/06/21 History Apixaban [Eliquis] 5 mg PO DAILY 03/28/19 04/06/21 History buPROPion HCL [buPROPion HCL Xl] 150 mg PO DAILY 04/06/21 04/06/21 History Allergies Allergy/AdvReac Type Severity Reaction Status Date / Time No Known Allergies Allergy Verified 04/06/21 09:33 Surgical - Exam Vital Signs Temp Pulse Resp BP Pulse Ox 97.8 F 78 18 178/89 98 04/08/21 08:45 04/08/21 08:45 04/08/21 08:45 04/08/21 08:45 04/08/21 08:45 - General well developed, well nourished, no distress - Eyes PERRL - ENT normal pinna - Neck no masses - Respiratory normal expansion - Cardiovascular Rhythm: regular - Abdomen Abdomen: soft, non tender Assessment and Plan Assessment: We'll perform screening colonoscopy.
--- NOTE | 2021-04-08 09:44 | P.OP ---
Date of Procedure: 04/08/21 Preoperative Diagnosis: Screening colonoscopy Postoperative Diagnosis: Hemorrhoids internal and external Procedure(s) Performed: Colonoscopy Anesthesia: MAC Surgeon: Tyrell Phillip Pathology: none sent Condition: stable Disposition: PACU Description of Procedure: The patient's placed on the endoscopy table in the lateral position. He received IV sedation. Digital rectal exam was performed this revealed internal and external hemorrhoids. The flexible colonoscope was then placed patient anus and passed throughout the entire colon. The ileocecal valve was visualized. The cecum, ascending and transverse colon appeared normal. The descending and sigmoid colon appeared normal. Scope was brought back the rectum small. Scope was dropped anus and internal and external hemorrhoids are noted. Scope was withdrawn for patient.
[2021-04-08 09:49] VITALS: RESP 16
[2021-04-08 10:02] VITALS: BP 125/81; PULSE 93
== END 2021-04-08 10:30 | disposition home or self-care (01) ==
LOC: ORWHC2ENDO 08:30
PROVIDERS: ATTEND Surgery
DX: Z12.11 Encounter for screening for malignant neoplasm of colon (principal); K64.4 Residual hemorrhoidal skin tags; K64.8 Other hemorrhoids; E78.5 Hyperlipidemia, unspecified; I10 Essential (primary) hypertension; I48.91 Unspecified atrial fibrillation; Z79.01 Long term (current) use of anticoagulants; Z98.890 Other specified postprocedural states; Z87.891 Personal history of nicotine dependence; Z79.899 Other long term (current) drug therapy
CPT/HCPCS: J2001; J2704; G0121; 45380

== ENCOUNTER → 2021-04-09 | Outpatient (CLI) | payer MEDICARE ==
[2021-04-09 16:19] LABS: HCT 40.3 % (39.0-53.0); HGB 12.7 gm/dL (13.0-17.5); Hypochromasia Slight; MCH 29.5 pg (25.0-35.0); MCHC 31.5 g/dL (31.0-37.0); MCV 93.7 fL (80.0-100.0); Mean Platelet Volume 7.7; Platelet Count 234 k/uL (150-450); RDW 14.7 % (11.5-15.5); WBC 7.7 k/uL (3.8-10.6)
[2021-04-09 16:25] LABS: Potassium 3.8 mmol/L (3.5-5.1)
== END | disposition home or self-care (01) ==
LOC: LABPAT 15:26
PROVIDERS: ATTEND Internal Medicine Cardiovascular Disease
DX: Z01.812 Encounter for preprocedural laboratory examination (principal); I48.11 Longstanding persistent atrial fibrillation
CPT/HCPCS: 80051; 82565; 84520; 85027

== ENCOUNTER → 2022-11-25 | Outpatient (CLI) | payer MEDICARE ==
[2022-11-25 23:14] LABS: Basophils # (A) 0.04 X 10*3/uL (0.00-0.10); Basophils % (A) 0.5 %; Eosinophils # (A) 0.21 X 10*3/uL (0.04-0.35); Eosinophils % (A) 2.7 %; HCT 49.4 % (39.6-50.0); HGB 15.7 g/dL (13.0-17.0); Immature Grans, Automated 0.4 %; Lymphocytes # (A) 2.33 X 10*3/uL (0.90-5.00); Lymphocytes % (A) 29.8 %; MCH 30.8 pg (27.0-32.0); MCHC 31.8 g/dL (32.0-37.0); MCV 96.9 fL (80.0-97.0); Mean Platelet Volume 11.8 fL (9.5-12.2); Monocytes % (A) 7.7 %; NRBC Per 100 WBC 0 /100 WBCS (0.0-0.0); Neutrophils # (A) 4.62 X 10*3/uL (1.80-7.70); Neutrophils % (A) 58.9 %; Platelet Count 202 X 10*3/uL (140-440); RDW 12.6 % (11.5-14.5); WBC 7.83 X 10*3/uL (4.50-10.00)
[2022-11-25 23:20] LABS: ALT 29 U/L (10-49); AST 23 U/L (14-35); African American GFR (CKD) 50.9 (60.0-200.0); Albumin 4.5 g/dL (3.8-4.9); Alkaline Phosphatase 139 U/L (41-126); BUN/Creat Ratio 14.94 Ratio (12.00-20.00); Blood Urea Nitrogen 23.9 mg/dL (9.0-27.0); Calcium 9.8 mg/dL (8.7-10.3); Chloride 103 mmol/L (96-109); Chol/HDL Ratio 2.83 Ratio; Glucose 102 mg/dL (70-110); LDL Cholesterol,Calculated 69.9 mg/dL (0.0-131.0); Non-African American GFR(CKD) 43.9 (60.0-200.0); Potassium 4.7 mmol/L (3.5-5.5); Sodium 139 mmol/L (135-145); Total Protein 7.5 g/dL (6.2-8.2); VLDL Calculation 14.82 mg/dL (5.00-40.00)
== END | disposition home or self-care (01) ==
LOC: LABWHC1 12:43
PROVIDERS: ATTEND Family Medicine
DX: Z00.01 Encounter for general adult medical examination with abnormal findings (principal); Z23 Encounter for immunization; Z12.2 Encounter for screening for malignant neoplasm of respiratory organs; I12.9 Hypertensive chronic kidney disease with stage 1 through stage 4 chronic kidney disease, or unspecified chronic kidney disease; H91.90 Unspecified hearing loss, unspecified ear; N18.31 Chronic kidney disease, stage 3a; E78.2 Mixed hyperlipidemia; R06.02 Shortness of breath; R41.3 Other amnesia; Z87.891 Personal history of nicotine dependence; Z79.01 Long term (current) use of anticoagulants
CPT/HCPCS: 36415; 80053; 80061; 84443; 85025

== ENCOUNTER → 2023-01-30 | Outpatient (CLI) | payer MEDICARE ==
--- NOTE | 2023-01-30 10:20 | CTL ---
EXAMINATION TYPE: CT Low Dose Lung DATE OF EXAM ORDERED: 01/30/2023 HISTORY: . Lung cancer screening CT DLP: 132.[address] CTDI: 3.4 mGy Automated exposure control for dose reduction was used. SCREENING VISIT: COMPARISON: 10/24/2016 TECHNIQUE: Low dose computed tomography scan was performed through the chest at 1 mm thick sections a nd reconstructed images in multiple planes at 1 mm and [address] DIAGNOSTIC QUALITY: Satisfactory FINDINGS: There are diffuse emphysematous changes. There is interlobular septal thickening. No definite focal p neumonia or pleural effusion. No pneumothorax. There is a gallstone. Hypodensity within the liver are again noted. Measures 5 Hounsfield units delores tible with cysts. Smaller hypodensities are also seen and too small to characterize. The heart is enlarged and there is coronary artery calcification. Atrophy of the left kidney. Atheros clerotic change aorta. No pathologic adenopathy seen. There is a 2 mm nodule left lower lobe image 181 not seen with certainty on prior exam. There is a 6 mm left lower lobe nodule image 246. This patient measured 5.5 mm. IMPRESSION: 1. There is a 6 mm nodule axial image 246 left lower lobe. There is a 2 mm pulmonary left lower lobe pulmonary nodule axial image 181. 2. Cardiomegaly and coronary artery calcification. 3. Cholelithiasis. 4. Multiple hepatic lesions most typical of simple cysts. 5. left renal atrophy CT LUNG RAD AND CT CHEST RECOMMENDATION: Lung-Rad 3 Probably Benign: 6 month follow-up LDCT. S Modifier (other clinically significant findings): S
== END | disposition home or self-care (01) ==
LOC: RADCTMAIN 09:04
PROVIDERS: ATTEND Family Medicine
DX: Z12.2 Encounter for screening for malignant neoplasm of respiratory organs (principal); K80.20 Calculus of gallbladder without cholecystitis without obstruction; F17.210 Nicotine dependence, cigarettes, uncomplicated; I25.10 Atherosclerotic heart disease of native coronary artery without angina pectoris; K76.89 Other specified diseases of liver; N26.1 Atrophy of kidney (terminal); I51.7 Cardiomegaly
CPT/HCPCS: 71271

== ENCOUNTER → 2023-05-08 | Outpatient (CLI) | payer MEDICARE ==
--- NOTE | 2023-05-08 09:12 | US ---
EXAMINATION TYPE: US abdomen complete DATE OF EXAM: 05/08/2023 COMPARISON: Renal ultrasound 06/28/2019 CLINICAL INDICATION: Male, 67 years old with history of K80.20 GALLSTONES; gallstones TECHNIQUE: Multiple sonographic images of the abdomen are obtained. FINDINGS: EXAM MEASUREMENTS: Liver Length: 15.9 cm Gallbladder Wall: 0.3 cm CBD: 0.4 cm Spleen: 12.9 cm Right Kidney: 13.6 x 5.9 x 5.8 cm Left Kidney: 8.4 x 3.6 x 3.5 cm Pancreas: Tail obscured by overlying bowel gas. Duct = 0.2cm Liver: multiple cystic areas noted, largest = 2.0 x 1.9 x 2.0cm Gallbladder: stones Evidence for sonographic Turcios's sign: no CBD: appears wnl Spleen: appears wnl Right Kidney: no evidence of hydronephrosis Left Kidney: atrophic Upper IVC: wnl Abd Aorta: wnl Minimally prominent pancreatic duct. The remaining portions of the pancreas are unremarkable. The danny l is obscured by overlying bowel gas. Few minimally complex cyst identified within the liver demonstr ating thin septation with largest measuring up to 2.0 cm. Cholelithiasis demonstrated. No wall thicke edmond or pericholecystic fluid. Common bile duct appears within normal limits. The spleen appears with in normal limits. Right kidney demonstrates no evidence of hydronephrosis, solid mass, or nephrolithi asis. Corticomedullary differentiation is maintained. The left kidney appears atrophic with thinning of the cortex. No hydronephrosis or nephrolithiasis identified. The visualized portions of the upper IVC and abdominal aorta are within normal limits. IMPRESSION: 1. Cholelithiasis without evidence for acute cholecystitis. 2. Few minimally complex cyst within the liver. 3. Atrophy of the left kidney.
== END | disposition home or self-care (01) ==
LOC: RADUSWWP 08:16
PROVIDERS: ATTEND Family Medicine
DX: K80.20 Calculus of gallbladder without cholecystitis without obstruction (principal); K76.89 Other specified diseases of liver; N26.1 Atrophy of kidney (terminal)
CPT/HCPCS: 76700

== ENCOUNTER 2023-09-13 14:16 | Inpatient (IN) | payer MEDICARE ==
--- NOTE | 2023-09-13 16:19 | CT ---
EXAMINATION TYPE: CT brain wo con CT DLP: 1278 mGycm, Automated exposure control for dose reduction was used. DATE OF EXAM: 09/13/2023 4:10 PM COMPARISON: None. CLINICAL INDICATION:Male, 67 years old with history of Left sided numbness, LT side numbness, possibl e TIA TECHNIQUE: Brain: Axial CT images of the brain were obtained with coronal and sagittal reformats created and rev iewed. Contrast used: None. Oral contrast used: None. FINDINGS: Brain: Extra-axial spaces: No abnormal extra-axial fluid collections. Ventricular system: Within normal limits Cerebral parenchyma: Loss of merlos-white matter differentiation in the left occipital lobe. No acute i ntraparenchymal hemorrhage or mass effect. The merlos-white junction is well differentiated. Cerebellum: Unremarkable. Mass effect: No evidence of midline shift. Intracranial vasculature: Atherosclerotic calcifications of the intracranial vessels. Soft tissues: Normal. Calvarium/osseous structures: No depressed skull fracture. Paranasal sinuses and mastoid air cells: Mild scattered paranasal sinus disease. Visualized orbits: Orbital contents are intact. IMPRESSION: 1. No acute intracranial process. 2. Subacute/chronic left occipital lobe injury.
[2023-09-13 17:01] LABS: Basophils % (A) 0 %; Eosinophils # (A) 0.3 k/uL (0-0.7); Eosinophils % (A) 3 %; HCT 46.3 % (39.0-53.0); HGB 15.6 gm/dL (13.0-17.5); Lymphocytes % (A) 18 %; MCH 31.6 pg (25.0-35.0); MCHC 33.6 g/dL (31.0-37.0); MCV 94.2 fL (80.0-100.0); Mean Platelet Volume 8.2; Monocytes # (A) 0.8 k/uL (0-1.0); Monocytes % (A) 7 %; Neutrophils # (A) 8.3 k/uL (1.3-7.7); Neutrophils % (A) 71 %; Platelet Count 228 k/uL (150-450); RBC 4.92 m/uL (4.30-5.90); RDW 12.4 % (11.5-15.5); WBC 11.6 k/uL (3.8-10.6)
[2023-09-13 17:17] LABS: ALT 31 U/L (4-49); AST 27 U/L (17-59); African American GFR (CKD) 48 (>60 ml/min/1.73 sqM); Albumin 4.8 g/dL (3.5-5.0); Alkaline Phosphatase 156 U/L (38-126); Anion Gap 15 mmol/L; Blood Urea Nitrogen 22 mg/dL (9-20); Calcium 10.3 mg/dL (8.4-10.2); Carbon Dioxide 23 mmol/L (22-30); Chloride 101 mmol/L (98-107); Glucose 109 mg/dL (74-99); Non-African American GFR(CKD) 42 (>60 ml/min/1.73 sqM); Potassium 4.5 mmol/L (3.5-5.1); Sodium 139 mmol/L (137-145); Total Bilirubin 1.6 mg/dL (0.2-1.3); Total Protein 8.8 g/dL (6.3-8.2)
[2023-09-13 17:20] LABS: INR 1.1 (<1.2); Partial Thromboplastin Time 29.7 sec (22.0-30.0); Prothrombin Time 11.6 sec (10.0-12.5)
--- NOTE | 2023-09-13 23:02 | ED ---
Neuro HPI - General Chief Complaint: Neuro Symptoms/Deficit Stated Complaint: poss mini Stroke Time Seen by Provider: 09/13/23 21:37 Source: patient Mode of arrival: ambulatory Limitations: no limitations - History of Present Illness Is the patient presenting with stroke symptoms?: Yes -: days(s) (5) Initial Comments: This is a 67-year-old male to the emergency department for evaluation today. Patient comes in with feels like his throat. Some confusion some dizziness. Patient also has some left arm and left leg weakness that resolved. He occasionally gets mild weakness and left leg with these noticed. Especially when he is ambulating. Nothing significant. Patient has no other complaints pa carrie has known nature fibrillation on [place] Location: left arm, left leg Place: home Severity: mild Quality: weak, numb, tingling Improves With: none Worsens With: none On Anticoagulants: Yes Treatments Prior to Arrival: none - Related Data Home Medications: Home Medications Medication Instructions Recorded Confirmed Atorvastatin [Lipitor] 40 mg PO DAILY 01/11/19 09/13/23 Furosemide [Lasix] 20 mg PO DAILY 01/11/19 09/13/23 Apixaban [Eliquis] 5 mg PO DAILY 03/28/19 09/13/23 buPROPion HCL [buPROPion HCL Xl] 150 mg PO DAILY 04/06/21 09/13/23 Losartan [Cozaar] 25 mg PO DAILY 09/13/23 09/13/23 Multivitamins, Thera [Multivitamin 1 tab PO DAILY 09/13/23 09/13/23 (formulary)] [place]-3/Dha/Epa/Fish Oil [Fish Oil 1 cap PO DAILY 09/13/23 09/13/23 1,000 mg Softgel] Previous Rx's Medication Instructions Recorded Metoprolol Succinate (ER) [Toprol 100 mg PO DAILY #30 tab.er.24h 08/12/18 XL] Apixaban [Eliquis] 5 mg PO BID tab 09/16/23 Atorvastatin [Lipitor] 40 mg PO HS tab 09/16/23 metFORMIN HCL ER [Glucophage XR] 500 mg PO DAILY #30 tab 09/16/23 Allergies/Adverse Reactions: Allergies Allergy/AdvReac Type Severity Reaction Status Date / Time No Known Allergies Allergy Verified 09/13/23 23:07 Review of Systems ROS Statement: Those systems with pertinent positive or pertinent negative responses have been documented in the HPI. ROS Other: All systems not noted in ROS Statement are negative. General Exam Limitations: no limitations General appearance: alert, in no apparent distress Head exam: Present: atraumatic, normocephalic, normal inspection Eye exam: Present: normal appearance, PERRL, EOMI. Absent: scleral icterus, conjunctival injection, periorbital swelling ENT exam: Present: normal exam, mucous membranes moist Neck exam: Present: normal inspection. Absent: tenderness, meningismus, lympha denopathy Respiratory exam: Present: normal lung sounds bilaterally. Absent: respiratory distress, wheezes, rales, rhonchi, stridor Cardiovascular Exam: Present: regular rate, normal rhythm, normal heart sounds. Absent: systolic murmur, diastolic murmur, rubs, gallop, clicks GI/Abdominal exam: Present: soft, normal bowel sounds. Absent: distended, tenderness, guarding, rebound, rigid Extremities exam: Present: normal inspection, full ROM, normal capillary refill. Absent: tenderness, pedal edema, joint swelling, calf tenderness Back exam: Present: normal inspection Neurological exam: Present: alert, oriented X3, CN II-XII intact Psychiatric exam: Present: normal affect, normal mood Skin exam: Present: warm, dry, intact, normal color. Absent: rash Stroke MDM - Lab Data Result diagrams: 09/14/23 10:02 09/16/23 08:10 Lab Results 09/13/23 09/13/23 09/13/23 Range/Units 16:46 16:46 16:46 WBC 11.6 H (3.8-10.6) k/uL RBC 4.92 (4.30-5.90) m/uL Hgb 15.6 (13.0-17.5) gm/dL Hct 46.3 (39.0-53.0) % MCV 94.2 (80.0-100.0) fL MCH 31.6 (25.0-35.0) pg MCHC 33.6 (31.0-37.0) g/dL RDW 12.4 (11.5-15.5) % Plt Count 228 (150-450) k/uL MPV 8.2 Neutrophils % 71 % Lymphocytes % 18 % Monocytes % 7 % Eosinophils % 3 % Basophils % 0 % Neutrophils # 8.3 H (1.3-7.7) k/uL Lymphocytes # 2.0 (1.0-4.8) k/uL Monocytes # 0.8 (0-1.0) k/uL Eosinophils # 0.3 (0-0.7) k/uL Basophils # 0.0 (0-0.2) k/uL PT 11.6 (10.0-12.5) sec INR 1.1 (<1.2) APTT 29.7 (22.0-30.0) sec Sodium 139 (137-145) mmol/L Potassium 4.5 (3.5-5.1) mmol/L Chloride 101 (98-107) mmol/L Carbon Dioxide 23 (22-30) mmol/L Anion Gap 15 mmol/L BUN 22 H (9-20) mg/dL Creatinine 1.68 H (0.66-1.25) mg/dL Est GFR (CKD-EPI)AfAm 48 (>60 ml/min/1.73 sqM) Est GFR (CKD-EPI)NonAf 42 (>60 ml/min/1.73 sqM) Glucose 109 H (74-99) mg/dL Calcium 10.3 H (8.4-10.2) mg/dL Total Bilirubin 1.6 H (0.2-1.3) mg/dL AST 27 (17-59) U/L ALT 31 (4-49) U/L Alkaline Phosphatase 156 H (38-126) U/L Total Protein 8.8 H (6.3-8.2) g/dL Albumin 4.8 (3.5-5.0) g/dL - NIH Stroke Scale 1a. Level of Consciousness: (0) alert 1b. LOC Questions: (0) answers correctly 1c. LOC Commands: (0) performs tasks correctly 2. Best Gaze: (0) normal 3. Visual: (0) no visual loss 4. Facial Palsy: (0) normal symmetrical movement 5a. Motor Arm Left: (0) no drift 5b. Motor Arm Right: (0) no drift 6a. Motor Leg Left: (0) no drift 6b. Motor Leg Right: (0) no drift 7. Limb Ataxia: (0) absent 8. Sensory: (0) normal 9. Best Language: (0) no aphasia 10. Dysarthria: (0) normal 11. Extinction/Inattention: (0) no abnormality - Medical Decision Making 67 male to the emergency department with stroke symptoms. Patient does have subacute CVA had CT scanning a she'll be admitted for neurology evaluation, n eurology to see and treat as well as close neurological monitoring - Radiology Data Radiology results: report reviewed (CT brain does acute show subacute CVA), i nga reviewed - EKG Data -: EKG Interpreted by Me (EKG is A. fib with RVR 105 QRS 99 QTC 4:30) Rate: tachycardia Past Medical History Past Medical History: Atrial Fibrillation, Chest Pain / Angina, Hyperlipidemia, Hypertension Additional Past Medical History / Comment(s): see dr lake's H&P History of Any Multi-Drug Resistant Organisms: None Reported Past Surgical History: Heart Catheterization, Tonsillectomy Additional Past Surgical History / Comment(s): colonoscopy, ear sx age 7, lt middle finger reattatched after table saw injury, cryoblation for a-fib (04/01/19) Past Anesthesia/Blood Transfusion Reactions: No Reported Reaction Past Psychological History: Depression Smoking Status: Former smoker - Past Family History Father Family Medical History: CVA/TIA Additional Family Medical History / Comment(s): fall w/ head injury/skull fx in the s Mother Family Medical History: Cancer Course Vital Signs 09/13/23 09/13/23 09/14/23 14:23 22:12 01:00 Temperature 97.5 F L Pulse Rate 102 H 97 81 Pulse Rate [ Supine Pulse Oximetery] Respiratory 18 16 16 Rate Blood Pressure 142/78 158/100 124/64 Blood Pressure [Right Arm Sitting] O2 Sat by Pulse 96 98 98 Oximetry 09/14/23 02:57 Temperature 97.4 F L Pulse Rate Pulse Rate [ 89 Supine Pulse Oximetery] Respiratory 16 Rate Blood Pressure Blood Pressure 121/73 [Right Arm Sitting] O2 Sat by Pulse 97 Oximetry - Reevaluation(s) Reevaluation #1: 09/13/23 23:00 Medical record is reviewed Reevaluation #2: 09/13/23 23:00 Patient symptoms unchanged Reevaluation #3: 09/13/23 23:00 Patient informed of results questions answered Reevaluation #4: 09/13/23 23:00 Was pt. sent in by a medical professional or institution (Dr., PA, EDUCATIONAL GUIDANCE COUNSELOR, urgent care, hospital, or fdc...) When possible be specific @ -no Did you speak to anyone other than the patient for history (EMS, parent, family, police, friend...)? What history was obtained from this source @ -no Did you review nursing and triage notes (agree or disagree)? Why? @ -agree Are old charts reviewed (outside hosp., previous admission, EMS record, old EKG, old radiological studies, urgent care reports/EKG's, fdc records)? Rep ort findings @ -yes Differential Diagnosis (chest pain, altered mental status, abdominal pain women, abdominal pain men, vaginal bleeding, weakness, fever, dyspnea, syncope, headache, dizziness, GI bleed, back pain, seizure, CVA, palpatations, mental health, musculoskeletal)? @ -prior EKG interpreted by me (3pts min.). @ -yes X-rays interpreted by me (1pt min.). @ -no CT interpreted by me (1pt min.). @ -yes U/S interpreted by me (1pt. min.). @ -no What testing was considered but not performed or refused? (CT, X-rays, U/S, labs)? Why? @ -none What meds were considered but not given or refused? Why? @ -none Did you discuss the management of the patient with other professionals (itzel rivera i.e. HEYDI [place], EDUCATIONAL GUIDANCE COUNSELOR, lab, RT, psych nurse, social work instructor, crm marketing analyst, teacher, tactical response group officer, case briefer)? Give summary @ -no Was smoking cessation discussed for >3mins.? @ -no Was critical care preformed (if so, how long)? @ -yes31 Were there social determinants of health that impacted care today? How? (Homelessness, low income, unemployed, alcoholism, drug addiction, transportation, low edu. Level, literacy, decrease access to med. care, usp, rehab)? @ -none Was there de-escalation of care discussed even if they declined (Discuss DNR or withdrawal of care, Hospice)? DNR status @ -no What co-morbidities impacted this encounter? (DM, HTN, Smoking, COPD, CAD, Cancer, CVA, ARF, Chemo, Hep., AIDS, mental health diagnosis, sleep apnea, morbid obesity)? @ -none Was patient admitted / discharged? Hospital course, mention meds given and route, prescriptions, significant lab abnormalities, going to OR and other pertinent info. @ - 67 male to the emergency department with stroke symptoms. Patient does have subacute CVA had CT scanning a she'll be admitted for neurology evaluation, neurology to see and treat as well as close neurological monitoring Admitted Undiagnosed new problem with uncertain prognosis? @ -no Drug Therapy requiring intensive monitoring for toxicity (Heparin, Nitro, Insulin, Cardizem)? @ -no Were any procedures done? @ -no Diagnosis/symptom? @ -Acute CVA, A. fib with RVR Acute, or Chronic, or Acute on Chronic? @ -Acute Uncomplicated (without systemic symptoms) or Complicated (systemic symptoms)? @ -Complicated Side effects of treatment? @ -no Exacerbation, Progression, or Severe Exacerbation? @ -exacerbation Poses a threat to life or bodily function? How? (Chest pain, USA, NH, pneumonia, PE, COPD, DKA, ARF, appy, cholecystitis, CVA, Diverticulitis, Homicidal, Suicidal, threat to staff... and all critical care pts) @ -yes with significantly acute CVA Reevaluation #5: 09/13/23 23:00 Differential CVA Ischemic stroke, hemorrhagic stroke, brain tumor, atypical migraine, Wernicke's encephalopathy, seizure, multiple sclerosis, meningitis, encephalitis, hypoglycemia, Guillain-Finney, electrolytes disturbance, myasthenia gravis.... This is not meant to be an all-inclusive list - Consultations Consultation #1: spoke w Dr Campo agrees to admit this patient Disposition Clinical Impression: Cerebrovascular accident (CVA), Transient cerebral ischemia, Atrial fibrillation Disposition: ADMITTED IP TO THIS HOSP Condition: Fair Is patient prescribed a controlled substance at d/c from ED?: No Time of Disposition: 23:00
[2023-09-14] MEDS: PANTOPRAZOLE 40 MG/10 ML VIAL IVP SCH (09:34)
[2023-09-14 10:19] LABS: Basophils % (A) 0 %; Eosinophils # (A) 0.4 k/uL (0-0.7); Eosinophils % (A) 4 %; HCT 42.3 % (39.0-53.0); HGB 14.2 gm/dL (13.0-17.5); Lymphocytes # (A) 1.6 k/uL (1.0-4.8); Lymphocytes % (A) 18 %; MCH 31.4 pg (25.0-35.0); MCHC 33.7 g/dL (31.0-37.0); MCV 93.3 fL (80.0-100.0); Mean Platelet Volume 8.3; Monocytes # (A) 0.6 k/uL (0-1.0); Monocytes % (A) 7 %; Neutrophils # (A) 6.3 k/uL (1.3-7.7); Neutrophils % (A) 68 %; Platelet Count 191 k/uL (150-450); RBC 4.53 m/uL (4.30-5.90); RDW 12.9 % (11.5-15.5); WBC 9.2 k/uL (3.8-10.6)
[2023-09-14 10:34] LABS: African American GFR (CKD) 48 (>60 ml/min/1.73 sqM); Anion Gap 10 mmol/L; Blood Urea Nitrogen 24 mg/dL (9-20); Calcium 9.1 mg/dL (8.4-10.2); Carbon Dioxide 23 mmol/L (22-30); Chloride 103 mmol/L (98-107); Glucose 97 mg/dL (74-99); Non-African American GFR(CKD) 42 (>60 ml/min/1.73 sqM); Potassium 4.2 mmol/L (3.5-5.1); Sodium 136 mmol/L (137-145)
[2023-09-14] MEDS: METOPROLOL SUCCINATE (ER) 100 MG TAB.ER.24H PO SCH (12:17)
[2023-09-14] MEDS: SODIUM CHLORIDE 0.9% 1,000 ML IV SCH (12:19)
[2023-09-14] MEDS: APIXABAN 5 MG TAB PO SCH ×2 (15:21→20:42)
--- NOTE | 2023-09-14 15:22 | P.CNNES ---
History of Present Illness Consult date: 09/14/23 Requesting physician: Darryn De Los Santos Reason for Consult: CVA History of Present Illness: Patient is a 67-year-old right-handed male with history of atrial fibrillation, hypertension, came to the hospital yesterday at 2:16 PM for strokelike symptoms. [place], when he developed symptoms. Patient states that he started with some runny nose and he went to bed. In the middle of night, he woke up to go to the bathroom. While walking suddenly his legs felt like a numb mainly the left leg. His left arm also felt numb, left arm felt heavy like a lead and also had some numbness of left side of the chest and his lips were tingling. His left arm felt like a weight. He collapsed in the chair. He did make it to bathroom, came back and slept. Next morning he woke up and wanted to take the shower that he felt dizzy. He has some visual disturbance, as if he was noticing bright red glow/halo in his left peripheral visual field. He has been feeling slightly dizzy, confused. He came back his home day before yesterday, slept overnight to see if symptoms will improve. As his symptoms persisted, he came to the ER. He states that he still has a he is in the left side of his vision. Someone mentioned to him that he had some slurred speech although he does not notices himself. He says that in any case he always mumbles which is not new. He denies any facial droop. Vital signs on arrival blood pressure 142/78, pulse rate 102, temperature 97.5. Blood test shows normal CBC PT/PTT, normal electrolytes, BU and 22, creatinine 1.68. Hepatic panel is normal, calcium is 10.3, EKG shows atrial fibrillation with rapid ventricular response, CT had revealed no acute intracranial process, subacute/chronic left occipital lobe injury. I personally reviewed CT head and believes that the left occipital lobe injury is chronic in nature. He also has no symptoms involving his right side of the body or visual nevarez. However on my review, there is evidence of a smaller area of subacute ischemia involving the right medial occipital lobe. This is most likely symptomatic. Patient was not a candidate for TPA, as he has symptoms for almost 5 days. Patient takes metoprolol, Lipitor 40 mg, Lasix, Wellbutrin 150 mg, multivitamins, fish oil, losartan and Eliquis 5 mg daily. Patient has history of atrial fibrillation diagnosed 2 years ago. Patient says that he has been prescribed Eliquis 5 mg twice a day, but he feels once a day should be enough and he on himself started taking 1 tablet a day almost for last 1 year. Patient also has developed some tingling of the toes of both feet, left more than right since he suffered from covid in 2019. He lives by himself, has no children. Patient has history of smoking 1 pack per day since age 25 (40 years). He quit only for a year and then resumed smoking 1 pack per week in the last 6 months. Denies any alcohol or drug use. Patient states he has hypertension and also has prediabetes. Review of Systems Constitutional: Denies chills, Denies fever Eyes: left loss of peripheral vision, denies blurred vision, denies diplopia, denies pain Ears: bilateral: decreased hearing (mild), deny: ear discharge, earache Ears, nose, mouth and throat: Reports vertigo, Denies headache, Denies sore throat Cardiovascular: Reports shortness of breath, Denies chest pain Respiratory: Reports cough with sputum, Denies snoring, Denies wheezing Gastrointestinal: Denies abdominal pain, Denies diarrhea, Denies nausea, Denies vomiting Genitourinary: Reports urinary frequency, Denies incontinence Musculoskeletal: Denies low back pain, Denies neck pain Integumentary: Denies pruritus, Denies rash Neurological: Reports as per HPI Psychiatric: Denies anxiety, Denies depression Endocrine: Denies fatigue, Denies weight change Hematologic/Lymphatic: Denies easy bleeding, Denies easy bruising Past Medical History Past Medical History: Atrial Fibrillation, Chest Pain / Angina, Hyperlipidemia, Hypertension Additional Past Medical History / Comment(s): see dr lake's H&P History of Any Multi-Drug Resistant Organisms: None Reported Past Surgical History: Heart Catheterization, Tonsillectomy Additional Past Surgical History / Comment(s): colonoscopy, ear sx age 7, lt middle finger reattatched after table saw injury, cryoblation for a-fib (04/01/19) Past Anesthesia/Blood Transfusion Reactions: No Reported Reaction Past Psychological History: Depression Additional Psychological History / Comment(s): lives alone in own home. drives. 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 Smoking Status: Former smoker Past Alcohol Use History: None Reported Additional Past Alcohol Use History / Comment(s): started smoking 1984 smokes 1 ppd quit 01/29 Past Drug Use History: None Reported - Past Family History Father Family Medical History: CVA/TIA, Vascular Disorder Additional Family Medical History / Comment(s): fall w/ head injury/skull fx in the s Mother Family Medical History: Cancer Medications and Allergies Home Medications Medication Instructions Recorded Confirmed Type Metoprolol Succinate (ER) [Toprol 100 mg PO DAILY #30 tab.er.24h 08/12/18 Rx XL] Atorvastatin [Lipitor] 40 mg PO DAILY 01/11/19 09/13/23 History Furosemide [Lasix] 20 mg PO DAILY 01/11/19 09/13/23 History Apixaban [Eliquis] 5 mg PO DAILY 03/28/19 09/13/23 History buPROPion HCL [buPROPion HCL Xl] 150 mg PO DAILY 04/06/21 09/13/23 History Losartan [Cozaar] 25 mg PO DAILY 09/13/23 09/13/23 History Multivitamins, Thera [Multivitamin 1 tab PO DAILY 09/13/23 09/13/23 History (formulary)] [place]-3/Dha/Epa/Fish Oil [Fish Oil 1 cap PO DAILY 09/13/23 09/13/23 History 1,000 mg Softgel] Allergies Allergy/AdvReac Type Severity Reaction Status Date / Time No Known Allergies Allergy Verified 09/13/23 23:07 Physical Examination - Vital Signs Vital Signs: Vital Signs Temp Pulse Pulse Resp BP BP BP 09/14/23 11:53 97.7 F 64 20 139/88 09/14/23 08:17 09/14/23 08:00 97.5 F L 102 H 20 140/65 09/14/23 02:57 97.4 F L 89 16 121/73 09/14/23 01:00 81 16 124/64 09/13/23 22:12 97 16 158/100 09/13/23 14:23 97.5 F L 102 H 18 142/78 Pulse Ox FiO2 11/02/23 11:53 99 09/14/23 08:17 97 21 09/14/23 08:00 98 09/14/23 02:57 97 09/14/23 01:00 98 09/13/23 22:12 98 09/13/23 14:23 96 Intake and Output 09/13/23 09/14/23 09/14/23 22:59 06:59 14:59 Other: Weight 95.254 kg Patient is a young-looking male, in no acute distress. Patient is alert awake oriented to time place and person. Patient knows it is 09/14/2023 and that he is in [facility]. Speech is mildly dysarthric and language functions are normal. Patient can name and repeat very well. No aphasia. Attention, concentration and fund of knowledge is adequate. On cranial nerve examination, pupils are equal, round and reacting to light, visual nevarez reveals left lower quadrant visual field defect, homonymous type. His extraocular muscles are intact with no nystagmus. Face is symmetric, tongue protrudes to the midline. Palatal elevation and sensation normal, hearing and shoulder shrug normal, facial sensation normal. On muscle strength testing, there is no pronator drift and the strength is normal in arms and legs distally and proximally. Deep tendon reflexes are symmetric 2 at the biceps, 1 brachioradialis, 1 at the knees, 1 at ankles and plantars downgoing bilaterally. Sensory to touch is equal with no neglect on double simultaneous stimulation. Cerebellar function showed no ataxia for [id number]-[id number] testing on either side. No dysdiadochokinesia. He has mild ataxia for [id number]-[id number] testing only on the left side. Tone and bulk of muscles normal. Gait deferred.. On general examination, there is no carotid bruit or murmur, S1-S2 audible. Chest is clear on consultation. Abdomen is soft nontender. No organomegaly, bowel sounds present. Peripheral pulses are present. No peripheral edema. Results - Laboratory Findings CBC and BMP: 09/14/23 10:02 09/14/23 10:02 Abnormal Lab Findings: Abnormal Labs 09/13/23 09/13/23 09/14/23 16:46 16:46 10:02 WBC 11.6 H Neutrophils # 8.3 H Sodium 136 L BUN 22 H 24 H Creatinine 1.68 H 1.68 H Glucose 109 H Calcium 10.3 H Total Bilirubin 1.6 H Alkaline Phosphatase 156 H Total Protein 8.8 H Assessment and Plan Assessment: * Subcute ischemic stroke right medial occipital region, with left-sided ataxia and left lower quadrant homonymous visual field defect. * Chronic ischemia involving the left occipital lobe, asymptomatic at this time. He denies any previous history of clinical stroke. * Atrial fibrillation * Hypertension * Prediabetes * Numbness and tingling of toes of both feet since Covid in 2020. Rule out peripheral neuropathy. * Tobacco use Plan: * Resume Eliquis 5 mg twice a day. Patient was taking Eliquis 5 mg once a day, on his own, assuming that taking 1 tablet a day would be enough. He has been doing it for last 1 year. Patient was strongly recommended to take Eliquis regularly twice a day every day. * Resume his other medications. * Fasting a.m. lipid panel, hemoglobin A1c. * Carotid Doppler * 2-D echo evaluate for embolic source. * PT OT, speech therapy. * B12, folate for symptoms of peripheral neuropathy. * DVT prophylaxis: Resume Eliquis. * Continue telemetry monitoring. * Recommend complete tobacco cessation. * Neurology will follow. Thank you for the consult.
--- NOTE | 2023-09-14 15:53 | US ---
EXAMINATION TYPE: US carotid duplex BILAT DATE OF EXAM: 09/14/2023 COMPARISON: NONE CLINICAL INDICATION: Male, 67 years old with history of CVA; CVA TECHNIQUE: Carotid duplex ultrasound examination. Indirect Doppler criteria was utilized. FINDINGS: EXAM MEASUREMENTS: RIGHT: Peak Systolic Velocity (PSV) cm/sec ----- Right CCA: 34.1 ----- Right ICA: 114.5 ----- Right ECA: 145.7 ICA/CCA ratio: 3.4 RIGHT: End Diastole cm/sec ----- Right CCA: 7.0 ----- Right ICA: 28.9 ----- Right ECA: 11.6 LEFT: Peak Systolic Velocity (PSV) cm/sec ----- Left CCA: 58.1 ----- Left ICA: 85.6 ----- Left ECA: 86.6 ICA/CCA ratio: 1.5 LEFT: End Diastole cm/sec ----- Left CCA: 6.3 ----- Left ICA: 27.4 ----- Left ECA: 0.0 VERTEBRALS (direction of flow): Right Vertebral: Antegrade Left Vertebral: Antegrade Rhythm: Arrhythmia PROPERTIES SUPERVISOR NOTES: Heterogeneous plaque, more on right side, with slightly elevated velocities, more on right side IMPRESSION: 1. Approximately 50-69% stenosis at the origin of the right internal carotid artery. 2. No hemodynamically significant stenosis of the origin of the left internal carotid artery. Criteria for Assigning % of Stenosis / Diameter reduction (Estimation based on the indirect measurements of the internal carotid artery velocities (ICA PSV). 1. Normal (no stenosis)=ICA PSV < 125 cm/s: ratio < 2.0: ICA EDV<40 cm/s. 2. Less than 50% stenosis=ICA PSV < 125 cm/s: ratio < 2.0: ICA EDV<40 cm/s. 3. 50 to 69% stenosis=ICA PSV of 125 to 230 cm/s: ration 2.0 ? 4.0: ICA EDV 40-100 cm/s. 4. Greater than 70% stenosis to near occlusion= ICA PSV > 230 cm/s: ratio > 4.0: ICA EDV > 100 cm/s. 5. Near occlusion= ICA PSV velocities may be low or undetectable: variable ratio and ICA EDV. 6. Total occlusion=unable to detect flow.
--- NOTE | 2023-09-14 16:54 | P.HPIM ---
History of Present Illness H&P Date: 09/14/23 Chief Complaint: Left-sided weakness, numbness ,altered mental state This is 67-year-old gentleman with past medical history significant for atrial fibrillation, hypertension, hyperlipidemia, nicotine dependence presented to the ER yesterday afternoon with complaints of left-sided numbness. Reports last week she was up north at at his cabin in [place], developed significant nasal congestion accompanied by left-sided numbness, weakness- reports his legs felt like cement. The next day felt a little dizzy, experiences some memory fogginess, refrain from exertional activity. The following 2 days he reports raking leaves, symptoms persisted involving left sided numbness and cognitive impairment and presented to the ER. At this time patient does not know the date and cannot tell as how long he was up north versus when he returned back home. Reports blurred vision mostly of the left eye, denies facial droop. Also states he fell yesterday landing on his left side. Denies chest pain, palpitations or shortness of breath. Afebrile, WBC 11.6, now 9.2. Hemoglobin and platelets coagulation unremarkable. MCV 94.2. Electrolytes within normal limits. BUN 22, creatinine 1.68. Total bili 1.6, alk phos 156, total protein 8.8. Calcium 10.3. Brain CT reported no acute intracranial process, subacute/chronic left occipital lobe injury. EKG reported atrial fibrillation with heart rate 105. Blood pressure on admission 142/78, heart rate 102, respiratory rate 18, maintaining O2 sats in the high 90s on room air. Patient was not a TPA candidate as symptoms had occurred for multiple days. Review of Systems ROS Statement: Those systems with pertinent positive or pertinent negative responses have been documented in the HPI. ROS Other: All systems not noted in ROS Statement are negative. Past Medical History Past Medical History: Atrial Fibrillation, Chest Pain / Angina, Hyperlipidemia, Hypertension Additional Past Medical History / Comment(s): see dr lake's H&P History of Any Multi-Drug Resistant Organisms: None Reported Past Surgical History: Heart Catheterization, Tonsillectomy Additional Past Surgical History / Comment(s): colonoscopy, ear sx age 7, lt middle finger reattatched after table saw injury, cryoblation for a-fib (04/01/19) Past Anesthesia/Blood Transfusion Reactions: No Reported Reaction Past Psychological History: Depression Additional Psychological History / Comment(s): lives alone in own home. drives. 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 Smoking Status: Former smoker Past Alcohol Use History: None Reported Additional Past Alcohol Use History / Comment(s): started smoking 1984 smokes 1 ppd quit 01/29 Past Drug Use History: None Reported - Past Family History Father Family Medical History: CVA/TIA, Vascular Disorder Additional Family Medical History / Comment(s): fall w/ head injury/skull fx in the s Mother Family Medical History: Cancer Medications and Allergies Home Medications Medication Instructions Recorded Confirmed Type Metoprolol Succinate (ER) [Toprol 100 mg PO DAILY #30 tab.er.24h 08/12/18 09/13/23 Rx XL] Atorvastatin [Lipitor] 40 mg PO DAILY 01/11/19 09/13/23 History Furosemide [Lasix] 20 mg PO DAILY 01/11/19 09/13/23 History Apixaban [Eliquis] 5 mg PO DAILY 03/28/19 09/13/23 History buPROPion HCL [buPROPion HCL Xl] 150 mg PO DAILY 04/06/21 09/13/23 History Losartan [Cozaar] 25 mg PO DAILY 09/13/23 09/13/23 History Multivitamins, Thera [Multivitamin 1 tab PO DAILY 09/13/23 09/13/23 History (formulary)] [place]-3/Dha/Epa/Fish Oil [Fish Oil 1 cap PO DAILY 09/13/23 09/13/23 History 1,000 mg Softgel] Allergies Allergy/AdvReac Type Severity Reaction Status Date / Time No Known Allergies Allergy Verified 09/13/23 23:07 Physical Exam Vitals: Vital Signs Temp Pulse Pulse Resp BP BP BP 09/14/23 11:53 97.7 F 64 20 139/88 09/14/23 08:17 09/14/23 08:00 97.5 F L 102 H 20 140/65 09/14/23 02:57 97.4 F L 89 16 121/73 09/14/23 01:00 81 16 124/64 09/13/23 22:12 97 16 158/100 09/13/23 14:23 97.5 F L 102 H 18 142/78 Pulse Ox FiO2 09/14/23 11:53 99 09/14/23 08:17 97 21 09/14/23 08:00 98 09/14/23 02:57 97 09/14/23 01:00 98 09/13/23 22:12 98 09/13/23 14:23 96 Intake and Output 09/13/23 09/14/23 09/14/23 22:59 06:59 14:59 Other: Weight 95.254 kg PHYSICAL EXAM: VITAL SIGNS: [As above] GENERAL: Alert and oriented 2, sitting up in bed, no acute distress HEENT: Normocephalic, Conjunctivae normal. eyes normal. NECK: Supple, No JVD. No thyroid enlargement. No LNs CARDIOVASCULAR: S1, S2 regular.. No murmur RESPIRATION: Unlabored Breath sounds diminished in the bases. No rhonchi or crackles. No bronchial breathing. ABDOMEN: Soft, nontender . No guarding. no masses palpable. No ascites, No hepatosplenomegaly.Bowel sounds heard. LEGS: No edema. no swelling PSYCHIATRY: Alert and oriented X2, disoriented to day, mood and affect normal. NERVOUS SYSTEM: Cranial N 2-12 grossly normal.No focal deficits. Strength and sensation grossly intact. Skin: Warm and dry, no rash Results CBC & Chem 7: 09/14/23 10:02 09/14/23 10:02 Labs: Abnormal Lab Results - Last 24 Hours (Table) 09/13/23 09/13/23 09/14/23 Range/Units 16:46 16:46 10:02 WBC 11.6 H (3.8-10.6) k/uL Neutrophils # 8.3 H (1.3-7.7) k/uL Sodium 136 L (137-145) mmol/L BUN 22 H 24 H (9-20) mg/dL Creatinine 1.68 H 1.68 H (0.66-1.25) mg/dL Glucose 109 H (74-99) mg/dL Calcium 10.3 H (8.4-10.2) mg/dL Total Bilirubin 1.6 H (0.2-1.3) mg/dL Alkaline Phosphatase 156 H (38-126) U/L Total Protein 8.8 H (6.3-8.2) g/dL Thrombosis Risk Factor Assmnt - Choose All That Apply Other Risk Factors: Yes Each Risk Factor Represents 2 Points: Age 61-74 years Other congenital or acquired thrombophilia - If yes, enter type in comment: No Thrombosis Risk Factor Assessment Total Risk Factor Score: 2 Thrombosis Risk Factor Assessment Level: Low Risk Assessment and Plan Assessment: Sub-acute CVA with left-sided ataxia, mild cognitive impairment. Chronic ischemia involving the left is upper lobe Chronic renal failure, stage III baseline creatinine 1.6 Possible peripheral neuropathy , reports Numbness and tingling of bilateral feet [id number] History of atrial fibrillation, cardioversion History of CHF, systolic dysfunction, EF less than 20% Hypertension Hyperlipidemia Nicotine dependence History of medical noncompliance History of alcohol use Plan: Continue on current medication regime, monitoring and symptomatic treatment. Echo ordered. Hemoglobin A1c pending Neurology consulted, neuro workup in progress. PT/OT/ST consulted. Smoking cessation reinforced. The impression and plan of care has been dictated as directed. : I performed a history and examination of this patient, discussed the same with the dictator. I agree with the dictator's note ,documented as a scribe. Any additional findings or plans will be noted.
[2023-09-14] MEDS ORDERED: APIXABAN 5 MG TAB PO SCH (21:00)
[2023-09-15] MEDS ORDERED: METOPROLOL SUCCINATE (ER) 100 MG TAB.ER.24H PO SCH (09:00)
[2023-09-15] MEDS: METOPROLOL SUCCINATE (ER) 100 MG TAB.ER.24H PO SCH (09:21)
[2023-09-15] MEDS: APIXABAN 5 MG TAB PO SCH ×2 (09:21→21:43)
[2023-09-15] MEDS: PANTOPRAZOLE 40 MG/10 ML VIAL IVP SCH (09:22)
--- NOTE | 2023-09-15 11:43 | CA ---
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 67 - 155 / 56 - 104 cm??? LV Systolic Volume MOD BP 42.7 cm??? 22 - 58 / 19 - 49 cm??? LV Ejection Fraction MOD BP 61.6 % >= 55 % LV Cardiac Index MOD BP 2790.8 cm???/min???m??? LV Diastolic Volume MOD 4C 127.8 cm??? LV Systolic Volume MOD 4C 75.3 cm??? LV Ejection Fraction MOD 4C 41.1 % LV Cardiac Index MOD 4C 2141.9 cm???/min???m??? LV Diastolic Length 4C 8.4 cm LV Systolic Length 4C 7.9 cm LV Diastolic Volume MOD 2C 125.7 cm??? LV Systolic Volume MOD 2C 49.7 cm??? LV Ejection Fraction MOD 2C 60.5 % LV Cardiac Index MOD 2C 3102.7 cm???/min???m??? LV Diastolic Length 2C 8.7 cm LV Systolic Length 2C 7.1 cm LA Volume 123.0 cm??? 18 - 58 / 22 - 52 cm??? LA Volume Index 54.6 cm???/m??? 16 - 28 cm???/m??? M-MODE Aortic Root Diameter MM 4.1 cm MV E Point Septal Separation 1.7 cm AV Cusp Separation MM 2.8 cm DOPPLER AV Peak Velocity 105.7 cm/s AV Peak Gradient 4.5 mmHg AI Peak Velocity 273.5 cm/s AI Peak Gradient 29.9 mmHg AI Pressure Half Time 453.5 ms MV Area PHT 4.9 cm??? MV Deceleration Time 170.3 ms TR Peak Velocity 282.2 cm/s TR Peak Gradient 31.9 mmHg Right Ventricular Systolic Press 36.9 mmHg FINDINGS Left Ventricle Left ventricular ejection fraction is estimated at 55-60 %. Left ventricular cavity size normal. Normal left ventricular wall motion. Mildly increased left ventricular wall thickness. Right Ventricle Moderate right ventricular dilatation. Mild pulmonary hypertension. Right Atrium Normal right atrial size. Left Atrium Mildly increased left atrial diameter. Severely increased left atrial volume. Mildly increased left atrial area. Mitral Valve Mild mitral annular calcification. Mild mitral regurgitation. Aortic Valve Trileaflet aortic valve. Mild aortic regurgitation. Tricuspid Valve Structurally normal tricuspid valve. mild tricuspid regurgitation. Pulmonic Valve Pulmonic valve not well visualized. Mild pulmonic regurgitation. Pericardium No pericardial effusion. Aorta Mild aortic dilatation at the level of the sinuses of valsalva 41 mm CONCLUSIONS 1. Normal left ventricular size and systolic function 2. Mild mitral, aortic and tricuspid regurgitation with mild pulmonary hypertension Previewed by: Dr. Rayo Ingram MD (Electronically Signed) Final Date: 15 September 2023 11:42
[2023-09-15] MEDS: SODIUM CHLORIDE 0.9% 1,000 ML IV SCH (14:07)
[2023-09-15 16:05] LABS: Chol/HDL Ratio 2.98 Ratio; LDL Cholesterol,Calculated 50.7 mg/dL (0.0-131.0); VLDL Calculation 19.74 mg/dL (5.00-40.00)
[2023-09-15] MEDS ORDERED: DEXTROSE 50% SYRINGE 50 ML IVP PRN ×2 (21:38)
--- NOTE | 2023-09-15 21:49 | P.PN ---
Subjective Progress Note Date: 09/15/23 H&P Date: 09/14/23 Chief Complaint: Left-sided weakness, numbness ,altered mental state This is 67-year-old gentleman with past medical history significant for atrial fibrillation, hypertension, hyperlipidemia, nicotine dependence presented to the ER yesterday afternoon with complaints of left-sided numbness. Reports last week she was up north at at his cabin in [place], developed significant nasal congestion accompanied by left-sided numbness, weakness- reports his legs felt like cement. The next day felt a little dizzy, experiences some memory fogginess, refrain from exertional activity. The following 2 days he reports raking leaves, symptoms persisted involving left sided numbness and cognitive impairment and presented to the ER. At this time patient does not know the date and cannot tell as how long he was up north versus when he returned back home. Reports blurred vision mostly of the left eye, denies facial droop. Also states he fell yesterday landing on his left side. Denies chest pain, palpitations or shortness of breath. Afebrile, WBC 11.6, now 9.2. Hemoglobin and platelets coagulation unremarkable. MCV 94.2. Electrolytes within normal limits. BUN 22, creatinine 1.68. Total bili 1.6, alk phos 156, total protein 8.8. Calcium 10.3. Brain CT reported no acute intracranial process, subacute/chronic left occipital lobe injury. EKG reported atrial fibrillation with heart rate 105. Blood pressure on admission 142/78, heart rate 102, respiratory rate 18, maintaining O2 sats in the high 90s on room air. Patient was not a TPA candidate as symptoms had occurred for multiple days. 09/15/2023 carotid Doppler reported right internal carotid artery stenosis 50- 69%. Echo reporting preserved LV function with EF of 55-60% with mild pulmonary hypertension, mild aortic mitral and tricuspid regurgitation. Patient also mentioning that he may have missed a day of taking his eliquis. Systolic blood pressure in the 150s. Reports hazy left vision. Denies chest pain, palpitations or shortness of breath. O2 O2 sats in the high 90s on room air. Objective - Vital Signs Vital signs: Vital Signs Temp 97.9 F 09/15/23 19:48 Pulse 71 09/15/23 19:48 Resp 17 09/15/23 19:48 BP 168/79 11/03/23 19:48 Pulse Ox 97 09/15/23 19:48 FiO2 21 09/14/23 08:17 Intake & Output 09/15/23 09/15/23 09/16/23 06:59 18:59 06:59 Intake Total 540 Balance 540 Intake: Oral 540 Other: Voiding Method Urinal Toilet # Voids 1 1 # Bowel Movements 1 - Exam PHYSICAL EXAM: VITAL SIGNS: [As above] GENERAL: Alert and oriented 3, sitting up in bed, no acute distress HEENT: Normocephalic, Conjunctivae normal. eyes normal. NECK: Supple, No JVD. CARDIOVASCULAR: S1, S2 regular.No murmur RESPIRATION: Unlabored Breath sounds diminished in the bases. ABDOMEN: Soft, nontender . No guarding. no masses palpable. +BS LEGS: No edema. no swelling NERVOUS SYSTEM: Cranial N 2-12 grossly normal.No focal deficits. Strength and sensation grossly intact. Skin: Warm and dry, no rash - Labs CBC & Chem 7: 09/14/23 10:02 09/14/23 10:02 Labs: Abnormal Lab Results - Last 24 Hours (Table) 09/14/23 09/15/23 Range/Units 10:02 07:52 Hemoglobin A1c 6.2 H (<=6.0) % HDL Cholesterol 35.60 L (40.00-60.00) mg/dL Assessment and Plan Assessment: Sub-acute CVA with left-sided ataxia, mild cognitive impairment. Right internal carotid artery stenosis 50-69%, outpatient monitoring/follow-up with vascular surgery Diabetes mellitus, A1c 6.2, further diabetic education in clinic Pulmonary hypertension 6 mm nodule left lower lobe, 2 mm pulmonary left lower lobe nodule reported per CT 02/02, further follow-up outpatient Chronic renal failure, stage III baseline creatinine 1.6 Possible peripheral neuropathy , reports Numbness and tingling of bilateral feet post- History of atrial fibrillation, cardioversion History of CHF, diastolic dysfunction, current EF 55-60% Hypertension Hyperlipidemia Nicotine dependence History of medical noncompliance History of alcohol use Plan: Continue on current medication regime, monitoring and symptomatic treatment. Neuro workup in progress with further neurology recommendations pending. Diabetic education, insulin sliding scale initiated. Smoking cessation reinforced. Continue holding Wellbutrin- lowers seizure threshold. Statin initiated .Close monitoring of renal function with repeat labs ordered for a.m. The impression and plan of care has been dictated as directed. : I performed a history and examination of this patient, discussed the same with the dictator. I agree with the dictator's note ,documented as a scribe. Any additional findings or plans will be noted.
[2023-09-15] MEDS ORDERED: ATORVASTATIN 40 MG TAB PO SCH (22:00)
--- NOTE | 2023-09-16 01:28 | P.PN ---
Subjective Progress Note Date: 09/15/23 Agent was seen for a follow-up. Patient states he is feeling much better. Offers no new complaints. Objective - Vital Signs Vital signs: Vital Signs Temp 98.5 F 09/15/23 16:12 Pulse 94 09/15/23 16:12 Resp 17 09/15/23 16:12 BP 166/74 09/15/23 16:12 Pulse Ox 98 09/15/23 16:12 FiO2 21 09/14/23 08:17 Intake & Output 09/14/23 09/15/23 09/15/23 18:59 06:59 18:59 Intake Total 200 360 Balance 200 360 Intake: Intake, IV Titration 200 Amount Sodium Chloride 0.9% 1, 200 000 ml @ 50 mls/hr IV . Q20H [facility] Rx#:[id number] Oral 0 360 Other: Voiding Method Urinal Toilet # Voids 1 1 # Bowel Movements 1 - Exam Patient's mental status, speech and language functions are normal. Cranial nerves significant for left lower quadrant homonymous visual field deficit. Muscle strength is normal. No pronator drift. No ataxia for [id number] or [id number] testing Sensations are equal. No neglect. - Labs CBC & Chem 7: 09/14/23 10:02 09/14/23 10:02 Labs: Abnormal Lab Results - Last 24 Hours (Table) 09/14/23 09/15/23 Range/Units 10:02 07:52 Hemoglobin A1c 6.2 H (<=6.0) % HDL Cholesterol 35.60 L (40.00-60.00) mg/dL Assessment and Plan Assessment: * Subcute ischemic stroke right medial occipital region, with left-sided ataxia and left lower quadrant homonymous visual field defect. * Chronic ischemia involving the left occipital lobe, asymptomatic at this time. He denies any previous history of clinical stroke. * Atrial fibrillation * Hypertension * Prediabetes * Numbness and tingling of toes of both feet since Covid in 2020. Rule out peripheral neuropathy. * Tobacco use Plan: * Resume Eliquis 5 mg twice a day. Patient was taking Eliquis 5 mg once a day, on his own, assuming that taking 1 tablet a day would be enough. He has been doing it for last 1 year. Patient was strongly recommended to take Eliquis regularly twice a day every day. * Resume his other medications. * Fasting a.m. lipid panel with cholesterol 106, LDL 50, HDL 35 and triglycerides 98. Continue Lipitor 40 mg daily. * Hemoglobin A1c 6.2. * Carotid Doppler revealed about 50-69% stenosis of the origin of the right ICA. No hemodynamically significant stenosis of the origin of the left ICA. Antegrade flow in both vertebral arteries. Patient has moderate right ICA stenosis. Recommend follow-up carotid Doppler in 6 months. No surgical intervention at this time. * 2-D echo revealed normal left-ventricular size and systolic function with EF 55-60%. Moderate right ventricular dilation, with mild pulmonary hypertension. Mildly increased left atrial diameter. Severely increased left atrial volume. Mild MR. * PT OT, speech therapy. * B12 617, folate 14.50. His symptoms of peripheral neuropathy likely related to prediabetes. * DVT prophylaxis: Resume Eliquis. * Optimize control of blood pressure. * Continue telemetry monitoring. * Recommend complete tobacco cessation. * Recommend no driving, until cleared by ophthalmology as an outpatient. * Neurologically clear for discharge. Dr. Hahn will be available for any neurologic concerns over the weekend.
[2023-09-16 06:06] LABS: Glucose,Whole Blood 94 mg/dL (70-110)
[2023-09-16] MEDS: SODIUM CHLORIDE 0.9% 1,000 ML IV SCH (06:07)
[2023-09-16] MEDS: INSULIN ASPART (NovoLOG) 100 UNIT/ML VIAL SQ SCH ×2 (06:16→12:33)
[2023-09-16] MEDS: PANTOPRAZOLE 40 MG/10 ML VIAL IVP SCH (08:31)
[2023-09-16] MEDS: APIXABAN 5 MG TAB PO SCH (08:31)
[2023-09-16] MEDS: METOPROLOL SUCCINATE (ER) 100 MG TAB.ER.24H PO SCH (08:31)
[2023-09-16 10:33] LABS: African American GFR (CKD) 59 (>60 ml/min/1.73 sqM); Anion Gap 9 mmol/L; Blood Urea Nitrogen 18 mg/dL (9-20); Carbon Dioxide 25 mmol/L (22-30); Chloride 104 mmol/L (98-107); Glucose 95 mg/dL (74-99); Non-African American GFR(CKD) 51 (>60 ml/min/1.73 sqM); Potassium 4.5 mmol/L (3.5-5.1); Sodium 138 mmol/L (137-145)
[2023-09-16 10:53] VITALS: TEMP 98
[2023-09-16 11:39] LABS: Glucose,Whole Blood 108 mg/dL (70-110)
[2023-09-16 12:20] VITALS: BP 140/79; PULSE 77; RESP 17
--- NOTE | 2023-09-16 13:57 | P.DS ---
Providers Date of admission: 09/14/23 01:41 Expected date of discharge: 09/16/23 Attending physician: Justino Campo Consults: 09/14/23 01:40 Consult Physician Routine Consulting Provider: Dami Graham Consult Reason/Comments: cva Do you want consulting provider notified?: Yes Primary care physician: Justino Jahaira [facility] Course: This is 67-year-old gentleman with past medical history significant for atrial fibrillation, hypertension, hyperlipidemia, nicotine dependence presented to the ER yesterday afternoon with complaints of left-sided numbness. Reports last week she was up north at at his cabin in [place], developed significant nasal congestion accompanied by left-sided numbness, weakness- reports his legs felt like cement. The next day felt a little dizzy, experiences some memory fogginess, refrain from exertional activity. The following 2 days he reports raking leaves, symptoms persisted involving left sided numbness and cognitive impairment and presented to the ER. At this time patient does not know the date and cannot tell as how long he was up north versus when he returned back home. Reports blurred vision mostly of the left eye, denies facial droop. Also states he fell yesterday landing on his left side. Denies chest pain, palpitations or shortness of breath. Afebrile, WBC 11.6, now 9.2. Hemoglobin and platelets coagulation unremarkable. MCV 94.2. Electrolytes within normal limits. BUN 22, creatinine 1.68. Total bili 1.6, alk phos 156, total protein 8.8. Calcium 10.3. Brain CT reported no acute intracranial process, subacute/chronic left occipital lobe injury. EKG reported atrial fibrillation with heart rate 105. Blood pressure on admission 142/78, heart rate 102, respiratory rate 18, maintaining O2 sats in the high 90s on room air. Patient was not a TPA candidate as symptoms had occurred for multiple days. 09/15/2023 carotid Doppler reported right internal carotid artery stenosis 50- 69%. Echo reporting preserved LV function with EF of 55-60% with mild pulmonary hypertension, mild aortic mitral and tricuspid regurgitation. Patient also mentioning that he may have missed a day of taking his eliquis. Systolic blood pressure in the 150s. Reports hazy left vision. Denies chest pain, palpitations or shortness of breath. O2 O2 sats in the high 90s on room air. 09/16/2023: Patient's been cleared by neurology.. He's been stable. We discussed his diabetes and we'll obtain a glucometer. He'll follow-up in the office in several days. Patient Condition at Discharge: Fair Plan - Discharge Summary Discharge Rx Participant: Yes New Discharge Prescriptions: New Apixaban [Eliquis] 5 mg PO BID tab metFORMIN HCL ER [Glucophage XR] 500 mg PO DAILY #30 tab Atorvastatin [Lipitor] 40 mg PO HS tab Continue Metoprolol Succinate (ER) [Toprol XL] 100 mg PO DAILY #30 tab.er.24h Atorvastatin [Lipitor] 40 mg PO DAILY Furosemide [Lasix] 20 mg PO DAILY Apixaban [Eliquis] 5 mg PO DAILY buPROPion HCL [buPROPion HCL Xl] 150 mg PO DAILY Multivitamins, Thera [Multivitamin (formulary)] 1 tab PO DAILY [place]-3/Dha/Epa/Fish Oil [Fish Oil 1,000 mg Softgel] 1 cap PO DAILY Losartan [Cozaar] 25 mg PO DAILY Discharge Medication List Metoprolol Succinate (ER) [Toprol XL] 100 mg PO DAILY #30 tab.er.24h 08/12/18 [Rx] Atorvastatin [Lipitor] 40 mg PO DAILY 01/11/19 [History] Furosemide [Lasix] 20 mg PO DAILY 01/11/19 [History] Apixaban [Eliquis] 5 mg PO DAILY 03/28/19 [History] buPROPion HCL [buPROPion HCL Xl] 150 mg PO DAILY 04/06/21 [History] Losartan [Cozaar] 25 mg PO DAILY 09/13/23 [History] Multivitamins, Thera [Multivitamin (formulary)] 1 tab PO DAILY 09/13/23 [History] [place]-3/Dha/Epa/Fish Oil [Fish Oil 1,000 mg Softgel] 1 cap PO DAILY 09/13/23 [History] Apixaban [Eliquis] 5 mg PO BID tab 09/16/23 [Rx] Atorvastatin [Lipitor] 40 mg PO HS tab 09/16/23 [Rx] metFORMIN HCL ER [Glucophage XR] 500 mg PO DAILY #30 tab 09/16/23 [Rx] Follow up Appointment(s)/Referral(s): Justino Campo MD [Primary Care Provider] - 1-2 days Discharge Disposition: HOME SELF-CARE
== END 2023-09-16 14:48 | disposition home or self-care (01) | DRG 65 ==
LOC: EC 14:16 → 3SCARD 09-14 01:41
PROVIDERS: ADMIT Family Medicine; ATTEND Family Medicine
DX: I63.9 Cerebral infarction, unspecified (principal); I13.0 Hypertensive heart and chronic kidney disease with heart failure and stage 1 through stage 4 chronic kidney disease, or unspecified chronic kidney disease; I50.42 Chronic combined systolic (congestive) and diastolic (congestive) heart failure; F32.A Depression, unspecified; N18.30 Chronic kidney disease, stage 3 unspecified; I48.91 Unspecified atrial fibrillation; R27.0 Ataxia, unspecified; Z79.01 Long term (current) use of anticoagulants; E78.5 Hyperlipidemia, unspecified; H53.40 Unspecified visual field defects; R29.701 NIHSS score 1; Z86.16 Personal history of COVID-19; I65.21 Occlusion and stenosis of right carotid artery; Z91.199 Patient's noncompliance with other medical treatment and regimen due to unspecified reason; E11.22 Type 2 diabetes mellitus with diabetic chronic kidney disease; I08.3 Combined rheumatic disorders of mitral, aortic and tricuspid valves; I27.20 Pulmonary hypertension, unspecified; Z79.899 Other long term (current) drug therapy; W19.XXXA Unspecified fall, initial encounter; Z87.891 Personal history of nicotine dependence
CPT/HCPCS: 36415; 70450; 80048; 80053; 80061; 82607; 82746; 83036; 85025; 85610; 85730; 93005; 93306; 93880; 94760; 99291

== ENCOUNTER → 2023-12-04 | Outpatient (CLI) | payer MEDICARE ==
--- NOTE | 2023-12-05 09:34 | MR ---
EXAMINATION TYPE: MR angio head wo/neck wo/w con DATE OF EXAM: 12/04/2023 3:39 PM CLINICAL INDICATION:Male, 68 years old with history of I63.9 CEREBRAL INFARCTION, UNSPECIFIED; PHH, C VA, Right occipital stroke COMPARISON: MRI brain. Technical: MRA brain: 2D and 3-D [id number] Axial with MIP and 3-D reconstruction. Performed on a separate w orkstation. MRA neck: Multiplanar, multi-sequence imaging as well as [id number] and phase was performed extra cranial vasculature of the neck. 3-D reformatted images and maximum intensity projection reformatted images were submitted for evaluation, these are performed on a separate workstation. IV Contrast: 9 cc Gadobutrol Findings: Vertebral arteries: The vertebral arteries are patent. Vertebral arteries are: Left vertebral artery is dominant Basilar artery: The basilar artery is intact. The basilar artery bifurcation is normal. Internal Carotid arteries: The cervical, petrous, cavernous and supraclinoid segments are normal. WINTER: Patent with no evidence of aneurysm. ACOM: Present without evidence of aneurysm. MCA: Patent with no evidence of aneurysm. RECORD FILING CLERK: Patent with no evidence of aneurysm. PCOM: Hypoplastic left normal caliber right. RIGHT CAROTID SYSTEM: The common carotid artery is patent. The carotid bifurcations demonstrates no e vidence for hemodynamically significant stenosis. The internal carotid artery is patent. LEFT CAROTID SYSTEM: The common carotid artery is patent. The carotid bifurcations demonstrates no e vidence for hemodynamically significant stenosis. The internal carotid artery is patent. The origins of the great vessels and vertebral arteries appear unremarkable. The left vertebral joselo ry is dominant. IMPRESSION: 1. No evidence of intracranial aneurysm or significant stenosis. 2. No evidence of significant stenosis at the carotid bifurcations. The carotid and vertebral arteri es are patent. 3. No evidence aneurysm.
--- NOTE | 2023-12-05 09:43 | MR ---
EXAMINATION TYPE: MR brain wo con DATE OF EXAM: 12/04/2023 3:15 PM CLINICAL INDICATION:Male, 68 years old with history of I63.9 CEREBRAL INFARCTION, UNSPECIFIED; PHH, C VA, Right occipital stroke COMPARISON: CT brain 09/13/2023. TECHNIQUE: Multi planar, multi sequence imaging was performed through the brain including: T1, T2, In version recovery, Diffusion weighted imaging, and gradient echo imaging. No gadolinium was given. FINDINGS: High DWI signal and gyriform pattern within the right occipital lobe predominantly involvin g the cortex and subcortical white matter. No additional areas identified to suggest acute stroke. The merlos-white junctions, ventricular system, basal cisterns appear unremarkable. Scattered foci of high T2 signal intensity are seen within the periventricular white matter. Midline structures show no abnormality. Diffusion-weighted imaging shows no evidence of restricted diffusion. The susceptibilit y weighted images microhemorrhage within the right cerebral hemisphere. The bone marrow signal is within normal limits. Paranasal sinuses and mastoid air cells: No significant paranasal sinus disease. Visualized orbits: Orbital contents are intact. IMPRESSION: 1. Findings compatible with right occipital lobe stroke predominantly involving the cortex and subcor tical white matter. 2. Nonspecific white matter changes, likely secondary to small vessel ischemic disease.
== END | disposition home or self-care (01) ==
LOC: RADMRIMAIN 13:43
PROVIDERS: ATTEND Psychiatry & Neurology Neurology
DX: I63.9 Cerebral infarction, unspecified (principal); I69.398 Other sequelae of cerebral infarction; H53.462 Homonymous bilateral field defects, left side
CPT/HCPCS: 70544; 70549; 70551; A9585

== ENCOUNTER → 2024-09-11 | Outpatient (CLI) | payer MEDICARE ==
[2024-09-11 15:34] LABS: HCT 48.3 % (39.0-53.0); HGB 15.3 gm/dL (13.0-17.5); MCH 30.3 pg (25.0-35.0); MCHC 31.8 g/dL (31.0-37.0); MCV 95.3 fL (80.0-100.0); Mean Platelet Volume 7.6; Platelet Count 160 k/uL (150-450); RBC 5.07 m/uL (4.30-5.90); WBC 7.4 k/uL (3.8-10.6)
[2024-09-11 15:44] LABS: ALT 27 U/L (4-49); AST 25 U/L (17-59); African American GFR (CKD) 43 (>60 ml/min/1.73 sqM); Albumin 4.4 g/dL (3.5-5.0); Albumin/Globulin Ratio 1.4; Alkaline Phosphatase 105 U/L (38-126); Anion Gap 10 mmol/L; Blood Urea Nitrogen 25 mg/dL (9-20); Calcium 9.4 mg/dL (8.4-10.2); Carbon Dioxide 24 mmol/L (22-30); Chloride 107 mmol/L (98-107); Globulin 3.2 g/dL; Glucose 94 mg/dL (74-99); Magnesium 2.1 mg/dL (1.6-2.3); Non-African American GFR(CKD) 37 (>60 ml/min/1.73 sqM); Phosphorus 3.3 mg/dL (2.5-4.5); Sodium 141 mmol/L (137-145); Total Bilirubin 1.2 mg/dL (0.2-1.3); Total Protein 7.6 g/dL (6.3-8.2)
[2024-09-11 22:11] LABS: % Iron Saturation 36.29 (15.00-50.00); Iron 131 UG/DL (65-175); Total Iron Binding Capacity 361 UG/DL (228-460)
== END | disposition home or self-care (01) ==
LOC: LABWHC1 14:19
PROVIDERS: ATTEND Internal Medicine
DX: N18.32 Chronic kidney disease, stage 3b (principal)
CPT/HCPCS: 36415; 80053; 82306; 82728; 83540; 83550; 83735; 83970; 84100; 85027

== ENCOUNTER → 2025-01-14 | Outpatient (CLI) | payer MEDICARE ==
[2025-01-14 17:22] LABS: Protein/Creatinine Ratio,Urine 0.143
[2025-01-14 17:39] LABS: Appearance,Urine Clear (Clear); Bilirubin,Urine Negative (Negative); Blood,Urine Trace (Negative); Color,Urine Light Yellow; Glucose,Urine (UA) 4+ (Negative); Ketones,Urine Negative (Negative); Leukocyte Esterase,Urine Negative (Negative); Mucus,Urine Rare /hpf; Nitrite,Urine Negative (Negative); Protein,Urine Trace (Negative); RBC,Urine <1 /hpf (0-5); Specific Gravity,Urine 1.026 (1.001-1.035); Urobilinogen,Urine <2.0 mg/dL (<2.0); WBC,Urine 1 /hpf (0-5)
[2025-01-15 03:04] LABS: Basophils # (A) 0.05 X 10*3/uL (0.00-0.10); Basophils % (A) 0.6 %; Eosinophils # (A) 0.21 X 10*3/uL (0.04-0.35); Eosinophils % (A) 2.6 %; HGB 16.5 g/dL (13.0-17.0); Lymphocytes # (A) 1.98 X 10*3/uL (0.90-5.00); Lymphocytes % (A) 24.9 %; MCH 31.1 pg (27.0-32.0); MCV 94.3 FL (80.0-97.0); Mean Platelet Volume 11.6 FL (9.5-12.2); Monocytes # (A) 0.69 X 10*3/uL (0.20-1.00); Monocytes % (A) 8.7 %; NRBC Per 100 WBC 0 X 10*3/uL (0.00-0.01); Neutrophils # (A) 4.99 X 10*3/uL (1.80-7.70); Neutrophils % (A) 62.8 %; Platelet Count 182 X 10*3/uL (140-440); WBC 7.95 X 10*3/uL (4.50-10.00)
[2025-01-15 03:52] LABS: % Iron Saturation 30.06 (15.00-50.00); ALT 25 U/L (10-49); AST 21 U/L (14-35); Albumin 4.4 g/dL (3.8-4.9); Albumin/Globulin Ratio 1.42 Ratio (1.60-3.17); Alkaline Phosphatase 128 U/L (41-126); BUN/Creat Ratio 16.18 Ratio (12.00-20.00); Blood Urea Nitrogen 27.5 mg/dL (9.0-27.0); Calcium 9.7 mg/dL (8.7-10.3); Carbon Dioxide 24.5 mmol/L (21.6-31.8); Chloride 106 mmol/L (96-109); Globulin 3.1 g/dL (1.6-3.3); Glucose 91 mg/dL (70-110); Iron 107 UG/DL (65-175); Magnesium 2.2 mg/dL (1.5-2.4); Phosphorus 3.6 mg/dL (2.4-5.1); Potassium 4.8 mmol/L (3.5-5.5); Sodium 141 mmol/L (135-145); Total Bilirubin 0.9 mg/dL (0.3-1.2); Total Iron Binding Capacity 356 UG/DL (228-460); Total Protein 7.5 g/dL (6.2-8.2)
== END | disposition home or self-care (01) ==
LOC: LABWHC1 15:44
PROVIDERS: ATTEND Internal Medicine
DX: E55.9 Vitamin D deficiency, unspecified (principal); D63.1 Anemia in chronic kidney disease; N39.0 Urinary tract infection, site not specified; N18.32 Chronic kidney disease, stage 3b; N25.81 Secondary hyperparathyroidism of renal origin; R80.9 Proteinuria, unspecified
CPT/HCPCS: 36415; 80053; 81001; 82043; 82306; 82570; 82728; 83540; 83550; 83735; 83970; 84100; 84156; 85025

== ENCOUNTER → 2025-04-30 | Outpatient (CLI) | payer MEDICARE ==
[2025-04-30 20:09] LABS: BUN/Creat Ratio 10.82 Ratio (12.00-20.00); Blood Urea Nitrogen 18.4 mg/dL (9.0-27.0); Chloride 105 mmol/L (96-109); Glucose 103 mg/dL (70-110); Magnesium 2.1 mg/dL (1.5-2.4); Potassium 4.7 mmol/L (3.5-5.5); Sodium 140 mmol/L (135-145)
[2025-04-30 20:10] LABS: ALT 28 U/L (10-49); AST 22 U/L (14-35); Albumin 4.2 g/dL (3.8-4.9); Albumin/Globulin Ratio 1.27 Ratio (1.60-3.17); Alkaline Phosphatase 113 U/L (41-126); Calcium 9.4 mg/dL (8.7-10.3); Carbon Dioxide 22.5 mmol/L (21.6-31.8); Globulin 3.3 g/dL (1.6-3.3); Total Bilirubin 0.9 mg/dL (0.3-1.2); Total Protein 7.5 g/dL (6.2-8.2)
[2025-04-30 20:50] LABS: Basophils # (A) 0.06 X 10*3/uL (0.00-0.10); Basophils % (A) 0.7 %; Eosinophils # (A) 0.17 X 10*3/uL (0.04-0.35); HCT 50.2 % (39.6-50.0); HGB 15.8 g/dL (13.0-17.0); Lymphocytes # (A) 1.92 X 10*3/uL (0.90-5.00); Lymphocytes % (A) 22.2 %; MCH 30.4 pg (27.0-32.0); MCHC 31.5 g/dL (32.0-37.0); MCV 96.7 FL (80.0-97.0); Mean Platelet Volume 10.7 FL (9.5-12.2); Monocytes # (A) 0.63 X 10*3/uL (0.20-1.00); Monocytes % (A) 7.3 %; NRBC Per 100 WBC 0 X 10*3/uL (0.00-0.01); Neutrophils # (A) 5.81 X 10*3/uL (1.80-7.70); Neutrophils % (A) 67.1 %; Platelet Count 252 X 10*3/uL (140-440); RBC 5.19 X 10*6/uL (4.40-5.60); RDW 13.2 % (11.5-14.5); WBC 8.65 X 10*3/uL (4.50-10.00)
== END | disposition home or self-care (01) ==
LOC: LABWHC1 12:12
PROVIDERS: ATTEND Internal Medicine
DX: N18.32 Chronic kidney disease, stage 3b (principal)
CPT/HCPCS: 36415; 80053; 82043; 82570; 83735; 84100; 85025